=== PATIENT | female | born 1945 | race Hispanic/Latino ===

== ENCOUNTER 2017-09-02 14:33 | Inpatient (IN) | payer MEDICARE ==
[~2017-09-02] VITALS: Ht 154.9 cm; Wt 70.4 kg
[~2017-09-02 14:33] MED LIST: ARICEPT5 MG PO; FUROSEMIDE40 MG PO; GLIMEPIRIDE PO; GLIMEPIRIDE4 MG PO; LANTUS100 UNITS/ SQ; LEVAQUIN500 MG PO; LISINOPRIL PO; LOSARTAN PO; LOSARTAN POTASS50 MG PO; MACROBID 100 M100 MG PO; METFORMIN HCL500 MG PO; METFORMIN PO; METOCLOPRAMIDE10 MG PO; NEXIUM40 MG PO; SIMVASTATIN40 MG PO; SPIRONOLACTONE25 MG PO; VITAMIN D PO
[2017-09-02] MEDS ORDERED: ASPIRIN 81 MG CHEW TAB PO ONE (15:15)
[2017-09-02 15:26] LABS: BASOPHILS # (AUTO) 0.1 (0.0-0.1); BASOPHILS % 0.7 % (0.0-1.0); EOSINOPHILS # (AUTO) 0.1 (0.0-0.4); EOSINOPHILS % 0.9 % (0.0-6.0); LYMPHOCYTES # (AUTO) 1.3 (1.0-3.2); LYMPHOCYTES % 18.5 % (18.0-39.1); MEAN CORPUSCULAR HGB CONC 33.9 g/dL (31-35); MEAN CORPUSCULAR VOLUME 91.3 fL (81-99); MONOCYTES # (AUTO) 0.4 (0.2-0.8); NEUTROPHILS % 73.3 % (38.7-80.0); PLATELET COUNT 64 x10e3/uL (140-360); RED BLOOD COUNT 2.42 x10e6/uL (3.6-5.1); RED CELL DISTRIBUTION WIDTH 17.4 % (11.7-14.4)
[2017-09-02 15:27] LABS: HEMATOCRIT 22.1 % (34.2-44.1)
[2017-09-02 15:28] LABS: HEMOGLOBIN 7.5 g/dL (12.0-16.0)
[2017-09-02 15:34] LABS: INR 1.77; PROTHROMBIN TIME 21.6 seconds (11.9-14.5)
[2017-09-02 15:35] LABS: PARTIAL THROMBOPLASTIN TIME 37.5 seconds (23.8-35.5)
[2017-09-02 15:41] LABS: ALBUMIN 2.3 g/dL (3.5-5.0); ALBUMIN/GLOBULIN RATIO 0.7 (0.8-2.0); ANION GAP 14.1 mmol/L (8-16); CALCIUM 8.6 mg/dL (8.4-10.2); CREATININE, SERUM 1.02 mg/dL (0.57-1.11); POTASSIUM 4.1 mmol/L (3.5-5.1)
[2017-09-02 15:48] LABS: CREATINE KINASE MB 3.9 ng/mL (0.00-5.00)
[2017-09-02] MEDS ORDERED: PANTOPRAZOLE 40 MG 10ML VIAL IV STA (16:37)
[2017-09-02] MEDS ORDERED: PHYTONADIONE 10 MG/ML AMP SC ONE (16:45)
[2017-09-02] MEDS ORDERED: SODIUM CHLORIDE 0.9% 250ML 250 ML IV ONE (16:45)
[2017-09-02] MEDS ORDERED: OCTREOTIDE ACETATE 0.05 MG/ML AMP IV ONE ×2 (17:15→19:15)
[2017-09-02] MEDS: CEFTRIAXONE SOD 2 GM VIAL IV SCH (17:45)
[2017-09-02] MEDS: OCTREOTIDE ACETATE 500 MCG in SODIUM CHLORIDE 0.9% 250ML 250 ML IV SCH (19:00)
[2017-09-02] MEDS ORDERED: SODIUM CHLORIDE 0.9% 250ML 250 ML ONE (20:18)
[2017-09-02] MEDS: SODIUM CHLORIDE 0.9% 1000ML 1,000 ML IV SCH (22:21)
[2017-09-03 00:19] LABS: HEMATOCRIT 18.7 % (34.2-44.1); HEMOGLOBIN 6.2 g/dL (12.0-16.0)
[2017-09-03 00:23] LABS: INR 1.51
--- NOTE | 2017-09-03 00:32 | Consultation ---
DATE OF CONSULTATION: September 02, 2017 GI CONSULT NOTE REFERRING PHYSICIAN: Jam Mckinley MD REASON FOR CONSULT: Upper GI bleeding, manifesting as melena and coffee-grounds emesis times 4 to 5 days. HISTORY OF PRESENTING ILLNESS: A 72-year-old very pleasant female with a past medical history of diabetes, obesity, hyperlipidemia, NICKERSON, and liver cirrhosis. She is a patient of my associate, Dr. Natarajan. She is presenting with several bouts of passing dark stool for the last 3 to 4 days. Yesterday, she also has had several episodes of emesis which was coffee-grounds. Denies any associated abdominal pain. She has had ultrasound of the abdomen last month for a screening of HCC. This showed cirrhotic nodular liver, splenomegaly, but no liver lesion, no ascites. When she arrived in the emergency room, she was noted hemodynamically stable, not orthostatic or tachycardic. Blood work revealed hemoglobin of 7.5, baseline hemoglobin is 9.1 as checked in May 2017. BUN was noted elevated to 43, baseline was 10 in June 2017. Patient does not recall if she has ever had any upper endoscopy. Denies any abdominal pain. No prior history of any peptic ulcer disease. PAST MEDICAL HISTORY: Type 2 diabetes, obesity, hypertension, hyperlipidemia, and NICKERSON liver cirrhosis. PAST SURGICAL HISTORY: Cholecystectomy. FAMILY HISTORY: Noncontributory. SOCIAL HISTORY: No smoking, alcohol, or any illicit drug use. MEDICATIONS: Reviewed as per MAR. ALLERGIES: NKDA PHYSICAL EXAMINATION VITAL SIGNS: Temperature 97.8, pulse ranging from 89 to 93, respirations 16 to 19, blood pressure 152/68, and oxygen saturation 99% on room air. GENERAL: Obese body habitus, not in any apparent distress. HEENT: Moist mucous membrane. Anicteric sclerae. CVS: S1, S2, regular. LUNGS: Bilaterally grossly clear. ABDOMEN: Obese, nontender. No palpable mass or hernia. Positive bowel sounds. EXTREMITIES: Warm. No leg edema. LABS: Sodium 144, potassium 4.1, chloride 111, bicarbonate 23, BUN 43, creatinine 1.02, and glucose 152. Liver tests showed a total bilirubin 3.2, AST 52, ALT 24, alkaline phosphatase 127. Troponin is negative. PT 21.6, INR 1.77. Urinalysis negative with RBCs 11 to 20 per high-powered field, WBC 0 to 5. Viral hepatitis serology was noted negative in May 2017. Ultrasound of the abdomen done in July 2017 showed cirrhotic liver, no liver lesion, splenomegaly, no ascites. IMPRESSIONS 1. Hemodynamically stable upper gastrointestinal bleeding, likely from either due to oozing from portal hypertensive gastropathy, less likely variceal bleeding. 2. Possibility of peptic ulcer disease cannot be ruled out. PLAN 1. Agree to continue octreotide infusion PPI, prophylactic antibiotic. 2. Monitor stool. 3. Monitor hemoglobin, transfuse as necessary just to keep the hemoglobin above 7. 4. Upper endoscopy tomorrow. 5. Further recommendation based upon endoscopic findings. Job#: [id number] CF ASHA
[2017-09-03] MEDS ORDERED: SODIUM CHLORIDE 0.9% 250ML 250 ML ONE (02:05)
[2017-09-03] MEDS: OCTREOTIDE ACETATE 500 MCG in SODIUM CHLORIDE 0.9% 250ML 250 ML IV SCH ×2 (03:18→05:14)
[2017-09-03] MEDS: CEFTRIAXONE SOD 2 GM VIAL IV SCH ×2 (05:26→20:10)
[2017-09-03] MEDS: SODIUM CHLORIDE 0.9% 1000ML 1,000 ML IV SCH ×2 (05:30→20:46)
[2017-09-03 08:34] LABS: BASOPHILS % 0.7 % (0.0-1.0); EOSINOPHILS # (AUTO) 0.3 (0.0-0.4); EOSINOPHILS % 4.7 % (0.0-6.0); HEMATOCRIT 24.5 % (34.2-44.1); HEMOGLOBIN 8.3 g/dL (12.0-16.0); LYMPHOCYTES # (AUTO) 1.9 (1.0-3.2); LYMPHOCYTES % 31.5 % (18.0-39.1); MEAN CORPUSCULAR HEMOGLOBIN 30.5 pg (28-32); MEAN CORPUSCULAR HGB CONC 33.9 g/dL (31-35); MEAN CORPUSCULAR VOLUME 90.1 fL (81-99); MONOCYTES # (AUTO) 0.5 (0.2-0.8); NEUTROPHILS # (AUTO) 3.4 (2.1-6.9); NEUTROPHILS % 54.6 % (38.7-80.0); RED BLOOD COUNT 2.72 x10e6/uL (3.6-5.1)
[2017-09-03 08:39] LABS: PLATELET COUNT 46 x10e3/uL (140-360)
[2017-09-03 09:34] LABS: PLATELET ESTIMATE MODERATELY DECREASED; PLATELET MORPHOLOGY COMMENT FEW LARGE; POLYCHROMASIA FEW; RBC MORPHOLOGY COMMENT NORMAL
[2017-09-03] MEDS ORDERED: DEXTROSE 50% SYRINGE 50 ML IV ONE (12:56)
[2017-09-03 15:10] VITALS: BP 182/85
--- NOTE | 2017-09-03 16:08 | Consultation ---
DATE OF CONSULTATION: September 03, 2017 ATTENDING PHYSICIAN: Noel Abel MD HISTORY OF PRESENT ILLNESS: Ms. Samir Rodriguez is a complex, 72-year-old woman with diabetes and hypertension, who speaks only Serbian. She presented to the emergency room with a complaint of multiple black stools. HISTORY OF PRESENT ILLNESS: Apparently Dr. Natarajan has previously done banding of esophageal varices, but the patient cannot provide details about this. PAST MEDICAL HISTORY: From the computer suggests longstanding type-2 diabetes, hypertension, hyperlipidemia, nonalcoholic hepatitis and cirrhosis. She has had previous cholecystectomy. HOME MEDICATIONS: Include: 1. Aricept 5 mg daily. 2. Nexium 40 mg daily. 3. Furosemide 40 mg 1/2 tablet daily. 4. Glimepiride 4 mg daily. 5. Insulin. 6. Losartan 50 mg daily. 7. Metformin 500 mg b.i.d. 8. Spironolactone 25 mg daily. PERSONAL AND SOCIAL HISTORY: She lives with family. Does not drink alcohol or smoke. REVIEW OF SYSTEMS: Cardiac: She does not know anything about any cardiac murmur and denies any history of chest pain or other cardiac problem. PHYSICAL EXAMINATION GENERAL: Exam at this time shows a pleasant woman who is alert and responsive, conversing in Serbian only. Denies any discomfort. Reports she has been having multiple stools at home. VITALS: Blood pressure 150/70. HEENT: Unremarkable. NECK: No jugular venous distention. No bruits. THORAX: Heart sounds S1 and S2 are equal. There is a 3/6 systolic murmur. No diastolic murmur. LUNGS: Relatively clear. ABDOMEN: Protuberant. Normal bowel sounds. Nontender. EXTREMITIES: No cyanosis, clubbing or edema. PERTINENT LABORATORY STUDIES: Hemoglobin of 7.5 on presentation, hematocrit 22.1, platelets 64,000. Chemistries show a BUN of 43, creatinine 1.0, glucose 152. CPK 205, CK-MB 3.9, troponin I 0.288. Her presenting coags show prothrombin time 21.6 seconds and INR 1.77. ASSESSMENT 1. Anemia of blood loss. 2. History of esophageal banding. 3. Cirrhosis. 4. Diabetes. 5. History of hypertension. 6. Systolic murmur, not previously characterized. PLAN: Will recheck H and H and transfuse as necessary. Will ask for GI consultation to follow up on recent esophageal banding. She has been started on octreotide. Recommend echo to assess loud systolic murmur. Job#: [id number] EV
[2017-09-03 18:13] LABS: HEMATOCRIT 23.7 % (34.2-44.1)
[2017-09-03 18:22] LABS: HEMOGLOBIN 7.8 g/dL (12.0-16.0)
[2017-09-03] MEDS: PANTOPRAZOLE SOD 40 MG TABEC PO SCH (18:30)
[2017-09-03] MEDS ORDERED: WATER STERILE 10 ML VIAL INJ PRN (18:30)
[2017-09-03] MEDS ORDERED: DEXTROSE 50% SYRINGE 50 ML IV PRN (18:30)
[2017-09-03] MEDS: LABETALOL HCL 100 MG TAB PO SCH (18:30)
[2017-09-03] MEDS: LOSARTAN POTASSIUM 25 MG TAB PO SCH (18:37)
[2017-09-03] MEDS ORDERED: LIDOCAINE HCL 2% LOCAL INJ 5 ML SDV VIAL INJ ONE (18:53)
[2017-09-03] MEDS ORDERED: PROPOFOL IV EMULSION 10 MG/ML 20 ML VIAL ONE (18:53)
[2017-09-03] MEDS ORDERED: MIDAZOLAM HCL 2 MG/2 ML VIAL ONE (19:18)
[2017-09-03 19:22] VITALS: BP 182/85
[2017-09-03 20:00] VITALS: BP 185/82
[2017-09-03 20:00] LABS: CHOL/HDL RATIO 3.3 (3.0-3.6)
[2017-09-03] MEDS: INSULIN REGULAR, HUMAN 100 UNIT/1 ML 3ML VIAL SQ SCH (21:30)
[2017-09-03 21:36] VITALS: BP 185/82
[2017-09-03] MEDS: LABETALOL HCL IV 5 MG/ML 20ML MDV IV PRN (22:56)
[2017-09-04] VITALS (7 sets, daily range): BP systolic 121–159; BP diastolic 55–78
[2017-09-04] MEDS: SODIUM CHLORIDE 0.9% 1000ML 1,000 ML IV SCH ×2 (00:50→08:25)
[2017-09-04 02:57] LABS: HEMOGLOBIN 7.4 g/dL (12.0-16.0)
[2017-09-04] MEDS ORDERED: FAMOTIDINE20 MG PO (04:17)
[2017-09-04] MEDS ORDERED: GENERLAC10 GM/15 M (04:18)
[2017-09-04] MEDS ORDERED: CLOTRIMAZOLE-BE15 GM TOP (04:19)
[2017-09-04 06:05] LABS: HEMOGLOBIN 7.4 g/dL (12.0-16.0)
[2017-09-04] MEDS: INSULIN REGULAR, HUMAN 100 UNIT/1 ML 3ML VIAL SQ SCH ×4 (07:30→21:00)
[2017-09-04] MEDS: PANTOPRAZOLE SOD 40 MG TABEC PO SCH ×2 (08:07→17:28)
[2017-09-04] MEDS: CEFTRIAXONE SOD 2 GM VIAL IV SCH ×2 (08:07→20:00)
[2017-09-04] MEDS: LABETALOL HCL 100 MG TAB PO SCH ×2 (08:25→21:00)
[2017-09-04] MEDS: LOSARTAN POTASSIUM 25 MG TAB PO SCH (08:25)
[2017-09-04] MEDS ORDERED: SODIUM CHLORIDE 0.9% 250ML 250 ML IV ONE (12:00)
[2017-09-04] MEDS ORDERED: FUROSEMIDE INJ 10 MG/ML 2 ML VIAL IV PRN (12:00)
[2017-09-04] MEDS ORDERED: DEXTROSE 50% SYRINGE 50 ML IV PRN (12:30)
[2017-09-04] MEDS: ALPRAZOLAM 0.25 MG TAB PO SCH ×2 (12:34→21:00)
--- NOTE | 2017-09-04 12:43 | History and Physical ---
PRIMARY CARE PHYSICIAN: Dr. Epps. CHIEF COMPLAINT: Vomiting blood. HISTORY OF PRESENT ILLNESS: This is a 72-year-old woman with history of cirrhosis and variceal bleed in 2005, now vomiting blood , which was 2 days ago. She also had a bowel movement last night which was black. She was came to the hospital here and underwent endoscopy which showed variceal bleeding, which was banded and also an ulcer. The patient was admitted for further evaluation and management. Currently, she is somewhat anxious. PAST MEDICAL HISTORY: Variceal bleed, status post banding in (DOCTOR SAYS, PLEASE DISCARD THIS DICTATION). Job#: [id number] SHAILESH
[2017-09-04 13:09] LABS: HEMATOCRIT 24.7 % (34.2-44.1)
--- NOTE | 2017-09-04 19:13 | Progress Note ---
DATE: September 04, 2017 at 11 a.m. SUBJECTIVE: Overnight the patient underwent endoscopy with esophageal varices banding. The patient is somewhat anxious. REVIEW OF SYSTEMS: Denies any dizziness, chest pain. OBJECTIVE VITAL SIGNS: Reviewed. GENERAL APPEARANCE: A tired-appearing woman resting in the bed. HEENT: Anicteric. CARDIOVASCULAR: Normal S1 and S2. LUNGS: Moderate breath sounds, ABDOMEN: Soft and nontender. Nondistended. EXTREMITIES: There is no edema or calf tenderness. NEUROLOGIC: Alert and oriented x3. Moving all extremities. SKIN: Dry. PSYCHIATRIC: Flat affect. LABS: Reviewed. MEDICATIONS: Reviewed. ASSESSMENT AND PLAN: This is a 72-year-old woman. 1. Esophageal variceal bleed and status post banding. 2. Severe normocytic anemia. 3. Thrombocytopenia. 4. Acute kidney injury. 5. Cirrhosis. 6. Anxiety disorder. 7. Overweight state. BMI 29.3 with hemoglobin A1c of 5.1 and LDL of 79. 8. Portal hypertension. Splenomegaly. No focal hepatic mass. PLAN: 1. She is status post blood transfusion of 2 units of packed red blood cells and 1 fresh frozen plasma. 2. Will continue to follow blood counts. 3. Will continue losartan and labetalol. 4. Will use SCDs for DVT prophylaxis. 5. Continue oral Protonix b.i.d. 6. Treat anxiety with Xanax. 7. Will need a blood transfusion this morning. Hemoglobin is 7.4 and has been falling. 8. Monitor closely in the IMCU. Job#: [id number]
--- NOTE | 2017-09-04 19:53 | Consultation ---
DATE OF CONSULTATION: September 04, 2017 REQUESTING PHYSICIAN: Dr. Anibal Adair. CHIEF COMPLAINT: Vomiting blood. HISTORY OF PRESENT ILLNESS: This is a 72-year-old woman with a history of cirrhosis, variceal bleed in 2005, now vomiting blood on which prompted visit to the hospital. The patient also admits to black stool. The patient underwent endoscopy that showed varices. She had banding performed and also showed an ulcer. Currently, she is comfortable, but somewhat anxious. She denies any chest pain. PAST MEDICAL HISTORY: Diabetes mellitus, hypertension, cirrhosis, variceal bleed in 2005, status post banding. PAST SURGICAL HISTORY: , cholecystectomy. ALLERGIES: PER ELECTRONIC MEDICAL RECORDS. FAMILY HISTORY/SOCIAL HISTORY: The patient is . She has 7 children. No alcohol, illicits or cigarettes. MEDICATIONS: Per electronic medical records. REVIEW OF SYSTEMS: Denies any dizziness or chest pain. PHYSICAL EXAMINATION VITAL SIGNS: Reviewed. GENERAL APPEARANCE: A tired-appearing woman resting in the bed. HEENT: Anicteric. CARDIOVASCULAR: Normal S1 and S2. LUNGS: Moderate breath sounds, ABDOMEN: Soft and nontender. Nondistended. EXTREMITIES: There is no edema. SKIN: Dry. PSYCHIATRIC: Normal affect. LABS: Reviewed. MEDICATIONS: Reviewed. ASSESSMENT AND PLAN: This is a 72-year-old woman. 1. Severe normocytic anemia/variceal bleed, status post banding. 2. Peptic ulcer. 3. Thrombocytopenia. 4. Acute kidney injury. 5. Cirrhosis. 6. Hypertension. 7. Anxiety disorder. 8. Diabetes mellitus type 2. Hemoglobin A1c 5.1. LDL 79 and triglyceride 65. PLAN: 1. She is status post blood transfusion. 2. Status post banding. 3. Follow up blood count. May need blood transfusion. They want the hemoglobin with goal of 9 versus 7. 4. Continue antibiotics prophylactically. 5. Continue IV fluids, monitor. 6. Use SCDs for DVT prophylaxis. 7. Alprazolam for anxiety 0.25 q.8 h. 1. Use SCDs for DVT prophylaxis. 2. Alprazolam for anxiety 0.25 q.8 h. Job#: [id number]
[2017-09-04 20:12] LABS: HEMATOCRIT 22.6 % (34.2-44.1); HEMOGLOBIN 7.6 g/dL (12.0-16.0)
[2017-09-05] VITALS: BP 116/53
[2017-09-05 04:00] VITALS: BP 111/55
[2017-09-05] MEDS: INSULIN REGULAR, HUMAN 100 UNIT/1 ML 3ML VIAL SQ SCH ×4 (07:30→21:00)
[2017-09-05] MEDS: SODIUM CHLORIDE 0.9% 1000ML 1,000 ML IV SCH ×2 (07:33→22:16)
[2017-09-05 07:45] LABS: BASOPHILS % 0.3 % (0.0-1.0); EOSINOPHILS # (AUTO) 0.1 (0.0-0.4); EOSINOPHILS % 2.4 % (0.0-6.0); LYMPHOCYTES # (AUTO) 0.9 (1.0-3.2); LYMPHOCYTES % 32.3 % (18.0-39.1); MEAN CORPUSCULAR HEMOGLOBIN 31.1 pg (28-32); MEAN CORPUSCULAR HGB CONC 33.7 g/dL (31-35); MEAN CORPUSCULAR VOLUME 92.2 fL (81-99); MONOCYTES # (AUTO) 0.3 (0.2-0.8); MONOCYTES % 11.3 % (4.4-11.3); NEUTROPHILS # (AUTO) 1.6 (2.1-6.9); NEUTROPHILS % 53.4 % (38.7-80.0); RED BLOOD COUNT 2.19 x10e6/uL (3.6-5.1); RED CELL DISTRIBUTION WIDTH 16.9 % (11.7-14.4)
[2017-09-05 08:00] VITALS: BP 135/56
[2017-09-05 08:11] LABS: HEMATOCRIT 20.2 % (34.2-44.1); HEMOGLOBIN 6.8 g/dL (12.0-16.0); PLATELET COUNT 32 x10e3/uL (140-360)
[2017-09-05 08:24] LABS: ALBUMIN 1.9 g/dL (3.5-5.0); ALBUMIN/GLOBULIN RATIO 0.7 (0.8-2.0); ANION GAP 10.4 mmol/L (8-16); CREATININE, SERUM 1.08 mg/dL (0.57-1.11); POTASSIUM 3.4 mmol/L (3.5-5.1)
[2017-09-05 08:28] LABS: CALCIUM 6.9 mg/dL (8.4-10.2)
[2017-09-05] MEDS: PANTOPRAZOLE SOD 40 MG TABEC PO SCH ×2 (09:36→17:03)
[2017-09-05] MEDS: LOSARTAN POTASSIUM 25 MG TAB PO SCH (09:36)
[2017-09-05] MEDS: LABETALOL HCL 100 MG TAB PO SCH ×2 (09:37→21:00)
[2017-09-05] MEDS: CEFTRIAXONE SOD 2 GM VIAL IV SCH ×2 (09:37→20:00)
[2017-09-05] MEDS: ALPRAZOLAM 0.25 MG TAB PO SCH ×3 (09:37→21:00)
[2017-09-05] MEDS ORDERED: CALCIUM CHLORIDE IV ONE (10:00)
[2017-09-05] MEDS ORDERED: SODIUM CHLORIDE 0.9% IV ONE (10:00)
[2017-09-05] MEDS ORDERED: SODIUM CHLORIDE 0.9% 250ML 250 ML ONE (10:15)
[2017-09-05 12:00] VITALS: BP 141/62
[2017-09-05 16:00] VITALS: BP 152/73
[2017-09-05 17:55] LABS: HEMATOCRIT 26.4 % (34.2-44.1)
[2017-09-05] MEDS: LABETALOL HCL IV 5 MG/ML 20ML MDV IV PRN (18:19)
[2017-09-05 20:00] VITALS: BP 158/74
[2017-09-06] VITALS (9 sets, daily range): BP systolic 133–188; BP diastolic 64–79
[2017-09-06] MEDS: LABETALOL HCL IV 5 MG/ML 20ML MDV IV PRN (03:51)
--- NOTE | 2017-09-06 04:25 | Progress Note ---
DATE: September 05, 2017 TIME: 11:10 a.m. Overnight, blood counts requiring blood transfusion. REVIEW OF SYSTEMS: Negative. OBJECTIVE VITAL SIGNS: Reviewed. GENERAL APPEARANCE: A tired-appearing woman resting in the bed. HEENT: Anicteric. CARDIOVASCULAR: Normal S1, S2. LUNGS: Moderate breath sounds, ABDOMEN: Soft, nondistended, tenderness in the epigastrium. EXTREMITIES: no edema. SKIN: Dry. PSYCHIATRIC: Flat affect. NEUROLOGIC: Alert and appropriate. Moving all extremities. LABS: Reviewed. MEDICATIONS: Reviewed. ASSESSMENT AND PLAN: A 72-year-old woman. 1. Severe normocytic anemia/variceal bleed, status post banding. 2. Peptic ulcer. 3. Thrombocytopenia. 4. Acute kidney injury. 5. Cirrhosis. 6. Hypertension/anxiety disorder. 7. Diabetes mellitus, type 2. Hemoglobin A1c 5.1, LDL 79, triglycerides 65. 8. Hypertension/splenomegaly. PLAN 1. Blood transfusion today. Follow up counts after. 2. Continue antibiotics prophylactically. 3. Alprazolam for anxiety. 4. Hemoglobin 6.8. Blood transfusion as noted above. 5. Prophylaxis. Use SCD. Job#: [id number] CQ
--- NOTE | 2017-09-06 04:27 | Progress Note ---
DATE: NO DICTATION, LENGTH 0:11 Job#: [id number] CF
[2017-09-06] MEDS: SODIUM CHLORIDE 0.9% 1000ML 1,000 ML IV SCH ×2 (07:05→18:51)
[2017-09-06 07:10] LABS: HEMATOCRIT 25.9 % (34.2-44.1); HEMOGLOBIN 8.9 g/dL (12.0-16.0)
[2017-09-06] MEDS: INSULIN REGULAR, HUMAN 100 UNIT/1 ML 3ML VIAL SQ SCH ×4 (07:30→20:33)
[2017-09-06 09:02] LABS: ANION GAP 10.1 mmol/L (8-16); CALCIUM 7.3 mg/dL (8.4-10.2); CREATININE, SERUM 0.97 mg/dL (0.57-1.11); POTASSIUM 3.1 mmol/L (3.5-5.1)
[2017-09-06] MEDS: PANTOPRAZOLE SOD 40 MG TABEC PO SCH ×2 (09:09→17:23)
[2017-09-06] MEDS: LOSARTAN POTASSIUM 25 MG TAB PO SCH (09:09)
[2017-09-06] MEDS: ALPRAZOLAM 0.25 MG TAB PO SCH ×3 (09:09→20:34)
[2017-09-06] MEDS: LABETALOL HCL 100 MG TAB PO SCH ×2 (09:09→20:34)
[2017-09-06] MEDS: CEFTRIAXONE SOD 2 GM VIAL IV SCH ×2 (09:09→20:33)
--- NOTE | 2017-09-06 13:00 | Progress Note ---
DATE: September 06, 2017 TIME: 8:20 a.m. OVERNIGHT: No events. REVIEW OF SYSTEMS: Denies any chest pain. No shortness of breath. OBJECTIVE VITAL SIGNS: Reviewed. GENERAL APPEARANCE: A tired-appearing woman resting in the bed. HEENT: Anicteric. CARDIOVASCULAR: Normal S1 and S2. LUNGS: Moderate breath sounds. ABDOMEN: Soft and nontender. EXTREMITIES: No edema. SKIN: Dry. PSYCHIATRIC: Flat affect. NEUROLOGIC: Alert and appropriate. LABS: Reviewed. MEDICATIONS: Reviewed. ASSESSMENT AND PLAN: A 72-year-old woman: 1. Severe normocytic anemia/variceal bleed, status post banding. 2. Peptic ulcer. 3. Thrombocytopenia. 4. Acute kidney injury. 5. Cirrhosis. 6. Hypertension. 7. Anxiety disorder. 8. Diabetes mellitus, type 2. Hemoglobin A1c 5.1, LDL 79, and triglycerides 65. 9. Splenomegaly. PLAN 1. Status post further blood transfusion. Hemoglobin today is 8.9, last night it was 9.0. We will continue to follow today, and if remains stable, we will transition home tomorrow. 2. Hypokalemia, we will recheck the potassium now. 3. Hypocalcemia, we will recheck the calcium now. 4. Discharge planning. 5. Control blood pressure and medication, titrate beta rose. Job#: [id number] [facility]
[2017-09-06 17:18] LABS: HEMATOCRIT 27.6 % (34.2-44.1); HEMOGLOBIN 9.5 g/dL (12.0-16.0)
[2017-09-07] VITALS: BP 121/71
[2017-09-07 01:25] VITALS: BP 121/71
[2017-09-07 04:49] VITALS: BP 150/77
[2017-09-07 06:19] LABS: HEMOGLOBIN 9.3 g/dL (12.0-16.0)
[2017-09-07] MEDS ORDERED: ALPRAZOLAM0.25 MG PO (06:25)
[2017-09-07] MEDS ORDERED: PROTONIX40 MG/ML PO (06:25)
[2017-09-07] MEDS: SODIUM CHLORIDE 0.9% 1000ML 1,000 ML IV SCH (06:37)
[2017-09-07 07:22] LABS: ANION GAP 10.4 mmol/L (8-16); BLOOD UREA NITROGEN 22 mg/dL (7-26); BUN/CREATININE RATIO 26 (6-25); CALCIUM 7.3 mg/dL (8.4-10.2); CARBON DIOXIDE 20 mmol/L (22-29); CHLORIDE 111 mmol/L (98-107); CREATININE, SERUM 0.84 mg/dL (0.57-1.11); EST GLOMERULAR FILTRATION RATE > 60 ML/MIN (60-); GLUCOSE 98 mg/dL (74-118); POTASSIUM 3.4 mmol/L (3.5-5.1); SODIUM 138 mmol/L (136-145)
[2017-09-07] MEDS: INSULIN REGULAR, HUMAN 100 UNIT/1 ML 3ML VIAL SQ SCH (07:30)
--- NOTE | 2017-09-07 07:56 | Discharge Summary ---
PRINCIPAL DIAGNOSES 1. Severe normocytic anemia secondary to variceal bleeding, status post banding. 2. Peptic ulcer disease. 3. Thrombocytopenia. 4. Acute kidney injury. 5. Cirrhosis. 6. Anxiety disorder. 7. Diabetes mellitus, type 2. Glycosylated hemoglobin 5.1, low-density lipoprotein 79, triglycerides 65. 8. Splenomegaly. SECONDARY DIAGNOSIS: Cirrhosis. CHIEF COMPLAINT: Bleeding. HISTORY OF PRESENT ILLNESS: This is a 72-year-old woman with bleeding. Please refer to the H and P for further details. HOSPITAL COURSE: The patient had severe normocytic anemia secondary to variceal bleeding, status post banding. Had multiple transfusions. Finally, the hemoglobin has remained stable on PPI. The patient had peptic ulcer disease and thrombocytopenia, also has cirrhosis. The patient has diabetes mellitus, type 2. Hemoglobin A1c 5.1, LDL 79, triglycerides 65. The patient also had splenomegaly. Doing better. We will recheck the potassium level, but the hemoglobin remains stable. Currently appropriate for discharge. DISCHARGE MEDICATIONS: Per electronic medical record. FOLLOWUP 1. With primary care doctor in 1 week. 2. GI service in 1 week. FER ALLEN MD Job#: [id number]
[2017-09-07 08:00] VITALS: BP 168/75
[2017-09-07] MEDS: LOSARTAN POTASSIUM 25 MG TAB PO SCH (08:41)
[2017-09-07] MEDS: LABETALOL HCL 100 MG TAB PO SCH (08:41)
[2017-09-07] MEDS: ALPRAZOLAM 0.25 MG TAB PO SCH (08:41)
[2017-09-07] MEDS: PANTOPRAZOLE SOD 40 MG TABEC PO SCH (08:41)
[2017-09-07] MEDS: CEFTRIAXONE SOD 2 GM VIAL IV SCH (08:41)
[2017-09-07] MEDS ORDERED: MAGNESIUM SULFATE 2GM/50ML 50 ML IV ONE (09:30)
[2017-09-07] MEDS ORDERED: POTASSIUM CHLORIDE 20 MEQ TAB CR PO ONE (09:30)
[2017-09-07 11:09] VITALS: BP 125/61
[2017-09-07 11:55] VITALS: BP 155/71
== END 2017-09-07 12:51 | disposition home or self-care (01) | DRG 432 ==
LOC: ER 14:33 → ERHOLD 20:44 → UNDOADMIN 20:44 → OR 09-03 11:20 → IMCU 09-03 14:59 → OBSVTOIN 09-04 11:29 → MED/SURG2 09-04 14:16
PROVIDERS: ADMIT Internal Medicine; ATTEND Internal Medicine
PROC: 30233K1 Transfusion of Nonautologous Frozen Plasma into Peripheral Vein, Percutaneous Approach (ICD-10-PCS; 2017-09-02)
PROC: 30233N1 Transfusion of Nonautologous Red Blood Cells into Peripheral Vein, Percutaneous Approach (ICD-10-PCS; 2017-09-03)
PROC: 06L34CZ Occlusion of Esophageal Vein with Extraluminal Device, Percutaneous Endoscopic Approach (ICD-10-PCS; principal; 2017-09-03 11:30)
PROC: 0DB68ZX Excision of Stomach, Via Natural or Artificial Opening Endoscopic, Diagnostic (ICD-10-PCS; 2017-09-03 11:30)
DX: K74.60 Unspecified cirrhosis of liver (principal); K25.4 Chronic or unspecified gastric ulcer with hemorrhage; I85.11 Secondary esophageal varices with bleeding; N17.9 Acute kidney failure, unspecified; D69.6 Thrombocytopenia, unspecified; K76.6 Portal hypertension; D62 Acute posthemorrhagic anemia; K75.81 Nonalcoholic steatohepatitis (NASH); K31.89 Other diseases of stomach and duodenum; E78.5 Hyperlipidemia, unspecified; E66.3 Overweight; Z68.29 Body mass index [BMI] 29.0-29.9, adult; E11.9 Type 2 diabetes mellitus without complications; I10 Essential (primary) hypertension; F41.9 Anxiety disorder, unspecified; R16.1 Splenomegaly, not elsewhere classified; Z79.4 Long term (current) use of insulin
CPT/HCPCS: 36415; 36430; 43239; 80048; 80053; 80061; 82550; 82553; 82948; 83036; 83735; 84484; 85014; 85018; 85025; 85610; 85730; 86850; 86900; 86920; 88305; 88312; 93005; 96360; 96361; 99284; G0378; J0696; J1940; J2001; J2250; J2353; J2354; J3430; J7030; J7050; J7799; P9016; P9017

== ENCOUNTER → 2017-10-01 | Outpatient (CLI) | payer MEDICARE ==
[~2017-10-01] MED LIST changes: +ALPRAZOLAM0.25 MG PO; +CLOTRIMAZOLE-BE15 GM TOP; +DIATRIZOATE MEGL/DIATRIZOA SOD 30 ML BTL PO ONE; +FAMOTIDINE20 MG PO; +GENERLAC10 GM/15 M; +PROTONIX40 MG/ML PO
--- NOTE | 2017-10-01 12:45 | Diagnostic Imaging Report ---
PROCEDURE: CT ABDOMEN AND PELVIS WITHOUT CONTRAST TECHNIQUE: The abdomen and pelvis were scanned utilizing a multidetector helical scanner from the diaphragm to the lesser trochanter after the oral administration of Gastroview. No IV contrast was administered as per physician request. Coronal and sagittal multiplanar reformations were obtained. COMPARISON: CT chest 06/08/2017. INDICATIONS: LEFT LOWER QUADRANT ABDOMINAL PAIN FINDINGS: ABSENCE OF INTRAVENOUS CONTRAST DECREASES SENSITIVITY FOR DETECTION OF FOCAL LESIONS AND VASCULAR PATHOLOGY. LOWER THORAX: Normal. HEPATOBILIARY: No focal hepatic lesions. No biliary ductal dilatation. 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 Nodular contour. SPLEEN: No splenomegaly. PANCREAS: No focal masses or ductal dilatation. ADRENALS: No adrenal nodules. KIDNEYS/URETERS: No hydronephrosis, stones, or solid mass lesions. Simple cyst in the left kidney. PELVIC ORGANS/BLADDER: Minimal calcification is present in the uterus. Ovaries are visualized. Normal urinary bladder. PERITONEUM / RETROPERITONEUM: Minimal amount of ascites is present in the abdomen, most prominent in the right upper quadrant, bilateral paracolic gutters, and pelvis. LYMPH NODES: No lymphadenopathy. VESSELS: Numerous varices are present in the region of the esophagus, stomach, and splenic hilum. A splenorenal shunt is noted between the splenic vein and the left renal vein. Aortoiliac atherosclerotic calcifications. GI TRACT: No distention or wall thickening. Normal appendix. Moderate amount of retained feces limits intraluminal evaluation of the colon. No air-fluid levels. BONES AND SOFT TISSUES: Degenerative changes of the lumbar spine. IMPRESSION: Cirrhosis with portal hypertension and minimal ascites. Moderate left pleural effusion. Dictated by: Colten Ozuna M.D. on 10/01/2017 at 12:54 Electronically approved by: Colten Ozuna M.D. on 10/01/2017 at 12:54
== END ==
LOC: CT 09:21
PROVIDERS: ATTEND Internal Medicine Gastroenterology
DX: E10.9 Type 1 diabetes mellitus without complications (principal); R10.32 Left lower quadrant pain; K74.69 Other cirrhosis of liver; I10 Essential (primary) hypertension; E66.9 Obesity, unspecified
CPT/HCPCS: 74176

== ENCOUNTER 2017-10-19 11:42 | Emergency (ER) | payer MEDICARE ==
[~2017-10-19] VITALS: Ht 154.9 cm; Wt 70.3 kg
[~2017-10-19 11:42] MED LIST changes: -DIATRIZOATE MEGL/DIATRIZOA SOD 30 ML BTL PO ONE
--- OUTSIDE RECORDS SUMMARY | 2017-10-19 11:45 | XMS REPORT ---
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 Allergies, Adverse Reactions, Alerts This patient has no known allergies or adverse reactions. Medications This patient has no known medications. Results Test Description Test Time Test Comments Text Results Atomic Results Result Comments CT ABDOMEN/PELVIS WO [place] [address] Patient Name: HENRIETTA GALVAN MR #: [id number] : 1945 Age/Sex: 72/F Req #: [id number] Adm Physician: Ordered by: ASHLEY NORMAN MD Report #: [id number] Location: CT Room/Bed: Procedure: [id number] CT/CT ABDOMEN/PELVIS WO Exam Date: 10/01/17 Exam Time: 1120 REPORT STATUS: Signed PROCEDURE: CT ABDOMEN AND PELVIS WITHOUT CONTRAST TECHNIQUE: The abdomen and pelvis were scanned utilizing a multidetector helical scanner from the diaphragm to the lesser trochanter after the oral administration of Gastroview. No IV contrast was administered as per physician request. Coronal and sagittal multiplanar reformations were obtained. COMPARISON: CT chest 2016. INDICATIONS: LEFT LOWER QUADRANT ABDOMINAL PAIN FINDINGS: ABSENCE OF INTRAVENOUS CONTRAST DECREASES SENSITIVITY FOR DETECTION OF FOCAL LESIONS AND VASCULAR PATHOLOGY. LOWER THORAX: Normal. HEPATOBILIARY : No focal hepatic lesions. No biliary ductal dilatation. 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 Nodular contour. SPLEEN: No splenomegaly. PANCREAS: No focal masses or ductal dilatation. ADRENALS: No adrenal nodules. KIDNEYS/URETERS: No hydronephrosis, stones, or solid mass lesions. Simple cyst in the left kidney. PELVIC ORGANS/BLADDER: Minimal calcification is present in the uterus. Ovaries are visualized. Normal urinary bladder. PERITONEUM / RETROPERITONEUM: Minimal amount of ascites is present in the abdomen, most prominent in the right upper quadrant, bilateral paracolic gutters, and pelvis. LYMPH NODES: No lymphadenopathy. VESSELS: Numerous varices are present in the region of the esophagus, stomach, and splenic hilum. A splenorenal shunt is noted between the splenic vein and the left renal vein. Aortoiliac atherosclerotic calcifications. GI TRACT: No distention or wall thickening. Normal appendix. Moderate amount of retained feces limits intraluminal evaluation of the colon. No air-fluid levels. BONES AND SOFT TISSUES: Degenerative changes of the lumbar spine. IMPRESSION: Cirrhosis with portal hypertension and minimal ascites. Moderate left pleural effusion. Dictated by: Alejandro Figueroa M.D. on 10/01/2017 at 12:54 Electronically approved by: Alejandro Figueroa M.D. on 10/01/2017 at 12:54 Dictated By: ALEJANDRO FIGUEROA MD 1254 Transcribed By: [place] on 10/01/17 1254 COPY TO: ASHLEY NORMAN MD ABDOMEN COMPLETE [place] [address] Patient Name: HENRIETTA GALVAN MR #: [id number] : 1945 Age/Sex: 72/F Req #: [id number] Adm Physician: Ordered by: ASHLEY NORMAN MD Report #: [id number] Location: Room/Bed: Procedure: [id number] US/US ABDOMEN COMPLETE Exam Date: Exam Time: REPORT STATUS: Signed PROCEDURE: ABDOMINAL ULTRASOUND COMPARISON: Chest CT 06/09/2017, abdominal ultrasound 2016. INDICATIONS: DIABETES, HTN, CIRRHOSIS FINDINGS: Liver: 10.9 cm in length in the right midclavicular line. Coarse, heterogeneous hepatic parenchymal echogenicity with nodularity of the external contour. No focal mass. Main portal vein: 1.0 cm in caliber. Hepatopedal flow. Gallbladder: Removed. Common Bile Duct: 0.9 cm in caliber, unchanged. No echogenic filling defect. Right kidney: 10.6 cm in length. No solid or cystic mass, echogenic calculi, or hydronephrosis. Normal renal cortical echogenicity. Left kidney: 11.7 cm in length. No solid mass, echogenic calculi , or hydronephrosis. Normal parenchymal echogenicity. Exophytic simple cyst projecting from the lower pole measures 3.9 x 2.9 x 3.9 cm. Similar, though smaller lesion at the upper pole measures 1.5 x 1.2 x 1.6 in meters. Spleen: Enlarged, measuring 15.1 cm in length. Uniform echotexture. Pancreas: The visualized portions of the pancreas are normal. Inferior vena cava: Patent. Aorta: Non-aneurysmal. Ascites: None. CONCLUSION: Cirrhotic liver with portal hypertension evidenced by splenomegaly. No focal hepatic mass. Prominent common bile duct unchanged and likely a consequence of cholecystectomy. Simple left renal cysts. Dictated by: Brenden Esteban M.D. on 08/12/2017 at 11:30 Electronically approved by: Brenden Esteban M.D. on 08/12/2017 at 11:30 Dictated By: BRENDEN ESTEBAN MD 1130 Transcribed By: [place] on 08/12/17 1130 COPY TO: ASHLEY NORMAN MD US ABDOMEN COMPLETE [place] [address] Patient Name: HENRIETTA GALVAN MR #: [id number] : 1945 Age/Sex: 71/F Req #: [id number] [facility] Physician: DANIELLA MAURO MD Ordered by: DANIELLA MAURO MD Report #: [id number] Location: [facility] Room/Bed: [facility] Procedure: [id number] US/US ABDOMEN COMPLETE Exam Date: Exam Time: REPORT STATUS: Signed PROCEDURE: Abdominal ultrasound COMPARISON: None. INDICATION: Cirrhosis; ascites. TECHNIQUE: Sol scale color Doppler ultrasound abdomen FINDINGS: Imaged segments of the inferior vena cava and abdominal aorta are normal. The distal aorta is obscured by bowel gas. Pancreatic head and proximal body are normal. Details obscured by bowel gas. Right liver span 11 cm. Slightly increased echogenicity with a nodular liver margin. Portal vein diameter 7 mm; normal flow direction. Cholecystectomy. Common bile duct diameter 6 mm. Right kidney: 9.6 x 4.3 x 4.4 cm Left kidney: 11.8 x 5.3 x 6.3 cm. Both kidneys are normal. Spleen length: 16 cm. No ascites. CONCLUSION: 1. Small echogenic liver consistent with cirrhosis. 2. Splenomegaly consistent with portal hypertension. No ascites. Dictated by: Jason Jaffe M.D. on 06/10/2017 at 10:51 Electronically approved by: Jason Jaffe M.D. on 06/10/2017 at 10:51 Dictated By: JASON JAFFE MD 1051 Transcribed By: [place] on 06/10/17 1051 COPY TO: DANIELLA MAURO MD CT CHEST W [facility] [address] [place] [address] Patient Name: HENRIETTA GALVAN MR #: [id number] : 1945 Age/Sex: 71/F Req #: [id number] Adm Physician: DANIELLA MAURO MD Ordered by: KRISTA PATTEN MD Report #: [id number] Location: [facility] Room/Bed : [facility] Procedure: [id number] CT/CT CHEST W Exam Date : 06/08/17 Exam Time: 1200 REPORT STATUS: Signed EXAM: CT Chest WITH contrast 06/08/2017 8:31 AM INDICATION: COMPARISON: None TECHNIQUE: Chest was scanned utilizing a multidetector helical scanner from the lung apex through the level of the adrenal glands without administration of IV contrast. Coronal and sagittal reformations were obtained. Routine protocol was performed. IV CONTRAST : 100 mL of Isovue-370 COMPLICATIONS: None RADIATION DOSE: Total DLP: 470.85 mGy*cm Estimated effective dose: (DLP x 0.014 x size factor) mSv CTDIvol has been reviewed. It is below the limits set by the Radiation Protocol Committee (RPC). FINDINGS: LINES/ TUBES: None. LUNGS AND AIRWAYS: Anterior right upper lobe calcified granuloma (series 3 , image 27). There are subcentimeter right lower lobe calcified granuloma ( /). Airways are normal. PLEURA: No pneumothorax. Small bilateral pleural effusions, left greater than right. There is compressive atelectasis on the left side. HEART AND MEDIASTINUM: The thyroid gland is normal. No mediastinal, hilar or axillary lymphadenopathy. The heart is borderline in size. There is no pericardial effusion. UPPER ABDOMEN: Cirrhotic liver. Partially imaged splenomegaly and splenorenal shunts. Esophageal varices. Superior pole right renal cyst and cortical defect. 1.8 cm right hepatic lobe enhancing lesion (series 2, image 87). BONES: The visualized bony thorax is within normal limits. SOFT TISSUES: Unremarkable. IMPRESSION: 1. No evidence of pneumonia. 2. Small bilateral pleural effusions, left greater than right. Compressive atelectasis of the part of the left lower lobe. 3. Cirrhotic liver with signs of portal hypertension. 4. 1.8 cm enhancing right hepatic lobe lesion may represent hemangioma or vascular shunting. If clinically indicated, liver protocol MRI can be obtained to confirm. Signed by: Dr. Byron Tadeo MD on 06/08/2017 1:55 PM Dictated By: BYRON TADEO MD 135 Transcribed By: SIA on 06/08/17 1356 COPY TO: KRISTA PATTEN MD CHEST SINGLE (PORTABLE) [place] [address] Patient Name: HENRIETTA GALVAN MR #: [id number] : 1945 Age/Sex: 71/F Req #: [id number] Adm Physician: Ordered by: JACK PARRISH Report #: [id number] Location: ER Room/Bed: _ Procedure: [id number] DX/CHEST SINGLE (PORTABLE) Exam Date: 06/07/17 Exam Time: 1400 REPORT STATUS: Signed PROCEDURE: CHEST SINGLE (PORTABLE) COMPARISON: [facility], DX, CHEST SINGLE , 09/21/2011, 17:53. INDICATIONS: COUGH, SHORTNESS OF BREATH. FEVER FINDINGS: LUNGS: There is increased pulmonary vascularity. Left retrocardiac/lower lobe consolidation is present. PLEURA: Moderate left pleural effusion. HEART T MEDIASTINUM: The heart is enlarged. BONES T SOFT TISSUES: No acute findings. CONCLUSION: 1. Cardiomegaly with increased pulmonary vascularity. 2. Left lower lobe consolidation with a pleural effusion. Uday Srivastava D.O. Dictated by: Uday Srivastava D.O. on 06/07/2017 at 15:40 Electronically approved by: Uday Srivastava D.O. on 06/07/2017 at 15:40 Dictated By: UDAY SRIVASTAVA DO 1540 COPY TO: JACK PARRISH
[2017-10-19] MEDS ORDERED: HYDROMORPHONE 1MG/1ML INJ IV STA (12:40)
[2017-10-19] MEDS ORDERED: ONDANSETRON HCL INJ 2 MG/ML VIAL IV STA (12:40)
[2017-10-19 13:03] LABS: BASOPHILS % 0.4 % (0.0-1.0); EOSINOPHILS % 0.8 % (0.0-6.0); HEMATOCRIT 27.9 % (34.2-44.1); HEMOGLOBIN 9.6 g/dL (12.0-16.0); LYMPHOCYTES # (AUTO) 0.6 (1.0-3.2); LYMPHOCYTES % 24.9 % (18.0-39.1); MEAN CORPUSCULAR HEMOGLOBIN 31.2 pg (28-32); MEAN CORPUSCULAR HGB CONC 34.4 g/dL (31-35); MEAN CORPUSCULAR VOLUME 90.6 fL (81-99); MONOCYTES # (AUTO) 0.3 (0.2-0.8); MONOCYTES % 13.1 % (4.4-11.3); NEUTROPHILS # (AUTO) 1.4 (2.1-6.9); NEUTROPHILS % 60.4 % (38.7-80.0); PLATELET COUNT 53 x10e3/uL (140-360); RED BLOOD COUNT 3.08 x10e6/uL (3.6-5.1); RED CELL DISTRIBUTION WIDTH 17.5 % (11.7-14.4)
[2017-10-19 13:05] LABS: INR 1.8; PARTIAL THROMBOPLASTIN TIME 37.5 seconds (23.8-35.5); PROTHROMBIN TIME 19.6 seconds (11.9-14.5)
[2017-10-19 13:15] LABS: ALANINE AMINOTRANSFERASE 21 IU/L (0-55); ALBUMIN/GLOBULIN RATIO 0.6 (0.8-2.0); ALKALINE PHOSPHATASE 196 IU/L (40-150); ANION GAP 10.9 mmol/L (8-16); BLOOD UREA NITROGEN 14 mg/dL (7-26); BUN/CREATININE RATIO 20 (6-25); CALCIUM 7.3 mg/dL (8.4-10.2); CARBON DIOXIDE 20 mmol/L (22-29); CHLORIDE 111 mmol/L (98-107); CREATININE, SERUM 0.71 mg/dL (0.57-1.11); EST GLOMERULAR FILTRATION RATE > 60 ML/MIN (60-); GLUCOSE 83 mg/dL (74-118); POTASSIUM 3.9 mmol/L (3.5-5.1); SODIUM 138 mmol/L (136-145)
--- NOTE | 2017-10-19 14:19 | Diagnostic Imaging Report ---
PROCEDURE:HIP RIGHT 2-3 VW (+/- PELVIS) COMPARISON:None. INDICATIONS:FALL, RIGHT HIP PAIN FINDINGS: BONES:Generalized osteopenia, which limits evaluation of the bony structures. No acute, displaced fracture or dislocation. No lytic or blastic lesions. Mild degenerative changes in bilateral hip joints and secretory joints.. SOFT TISSUES:Negative. OTHER:Negative. CONCLUSION:Generalized osteopenia, which limits evaluation of the bony structures. No acute, displaced fracture or dislocation. Correlate clinically for need for further imaging. Rafal Low M.D. Dictated by: Rafal Low M.D. on 10/19/2017 at 14:18 Electronically approved by: Rafal Low M.D. on 10/19/2017 at 14:18
--- NOTE | 2017-10-19 14:20 | Diagnostic Imaging Report ---
PROCEDURE:FEMUR TWO VIEW MINIMUM RIGHT COMPARISON:Patients [facility], CT, CT ABDOMEN/PELVIS WO, 10/01/2017, 11:17. INDICATIONS:FALL, RIGHT HIP PAIN FINDINGS: Generalized osteopenia, which limits evaluation of bony structures. There are no acute, displaced fractures, dislocations, lytic or blastic lesions. Mild degenerative changes in the right hip and knee joints. Tiny suprapatellar effusion. CONCLUSION: Generalized osteopenic which limits evaluation of bony structures. No acute, displaced fracture or dislocation, within the limitations of the study. Rafal Low M.D. Dictated by: Rafal Low M.D. on 10/19/2017 at 14:20 Electronically approved by: Rafal Low M.D. on 10/19/2017 at 14:20
--- NOTE | 2017-10-19 18:34 | Diagnostic Imaging Report ---
MRI right hip preliminary report: Clinical history: Right hip pain, evaluate for occult hip fracture Comparison: Right femur and hip films 10/19/2017 Impression: 1. No MR evidence of occult fracture. 2. Right gluteal muscle contusion.
== END 2017-10-19 19:24 | disposition home or self-care (01) ==
LOC: ER 11:42
DX: S70.01XA Contusion of right hip, initial encounter (principal); W18.30XA Fall on same level, unspecified, initial encounter; Y93.9 Activity, unspecified; Y92.009 Unspecified place in unspecified non-institutional (private) residence as the place of occurrence of the external cause
CPT/HCPCS: 36415; 73502; 73552; 73721; 80053; 85025; 85610; 85730; 99283; J1170; J2405

== ENCOUNTER 2017-12-16 21:52 | Inpatient (IN) | payer MEDICARE ==
[~2017-12-16] VITALS: Ht 154.9 cm; Wt 77.1 kg
--- OUTSIDE RECORDS SUMMARY | 2017-12-16 22:10 | XMS REPORT | Continuity of Care Document ---
Author Author [facility] Organization [facility] Address [address] [place] [address] Phone Unavailable Care Team Providers Care Client Support Analyst Name Role Phone AVRIL WAGGONER MD PCP Insurance Providers Guarantor Dawson Henrietta Randolph Address [address] [place] [address] Email [email or web address] Payer [facility] Policy Number [id number] Subscriber's Name Henrietta Fox C Relationship 18 Self / Same As Patient Group Number [id number] Group Name RETIRED Effective Date 17 Advance Directives Directive Response Recorded Date/Time Does the patient have an advance directive? No 10/01/17 9:20am If yes, is advance directive on file with [facility]? No 09/03/17 7:26pm If not on file with [facility] will patient provide a copy? No 09/03/17 7:26pm Do you have a Directive to Physician? No 10/19/17 2:39pm Do you have a Medical Power of Interior Decorator Painting? No 10/19/17 2:39pm Do you have an out of hospital Do Not Resuscitate Order? No 10/19/17 2:39pm Do you have any special needs we should be aware of? No 10/19/17 2:39pm Do you have a support person here with you today? Yes 10/19/17 2:39pm Did patient receive Notice of Privacy Practices? Yes 10/19/17 2:39pm Did patient receive patient rights and responsibilities? Yes 10/19/17 2:40pm Problems Medical Problem Onset Date Status Cirrhosis Unknown GI bleed Unknown Pneumonia Unknown Medications Current Home Medications Medication Dose Units Route Directions Days Qty Instructions Start Date Alprazolam 0.25 Mg Tablet 0.25 Mg Oral Three Times A Day 10 Days Betamethasone/Clotrimazole (Clotrimazole-Betamethasone Crm) 15 Gm Cr 45 Gm Topically Donepezil Hcl (Aricept) 5 Mg Tablet 5 Mg Oral Bedtime 30 Tab Famotidine 20 Mg Tab 40 Mg Oral Daily 30 Tab Furosemide 40 Mg Tablet 20 Mg Oral Daily 30 Tab Glimepiride 4 Mg Tablet 4 Mg Oral Twice A Day Insulin Glargine (Lantus) 100 Units/Ml Ml 90 Units Sub-Q Daily Lactulose (Generlac) 10 Gm/15 Ml Solution Losartan Potassium 50 Mg Tablet 50 Mg Oral Daily Metformin Hcl 500 Mg Tablet 500 Mg Oral Twice A Day 60 Tab Metoclopramide Hcl 10 Mg Tablet 10 Mg Oral Daily Pantoprazole Sod (Protonix) 40 Mg/Ml Susp 40 Mg Oral Twice Daily Before Meals 30 Days 09/07/17 Simvastatin 40 Mg Tablet 40 Mg Oral Today At 9:00PM 30 Tab Spironolactone 25 Mg Tablet 50 Mg Oral Daily 60 Tab Past Home Medications Medication Directions Ordered Status Esomeprazole Magnesium (Nexium) 40 Mg Capsule.dr, 40 Mg Oral Daily Discontinued Glimepiride , Oral Twice A Day Discontinued Levofloxacin (Levaquin) 500 Mg Tablet, 500 Mg Oral Daily 06/11/17 Discontinued Lisinopril , Oral Daily Discontinued Losartan , Oral Daily Discontinued Metformin , Oral Three Times A Day Discontinued Nitrofurantoin Monohyd/M-Cryst (Macrobid 100 Mg Capsule) 100 Mg Capsule, 100 Mg Oral Twice A Day 06/11/17 Discontinued Vitamin D , Oral Wkly Discontinued Social History Social History Problem Response Recorded Date/Time Onset Date Status Hx Psychiatric Problems No 09/03/2017 7:26pm Not Applicable Not Applicable Smoking Status Start Date Stop Date Never Smoker Hospital Discharge Instructions No hospital discharge instruction information available. Plan of Care Discharge Date 10/19/17 7:24pm Disposition HOME, SELF-CARE Condition at Discharge Stable Instructions/Education Provided Contusion Forms Provided Work/School Excuse Prescriptions See Medication Section Referrals AVRIL WAGGONER MD Order Date: Call for an appointment Address: [address] [id number] Additional Instructions/Education [facility] DO[facility] Functional Status No functional status information available. Allergies, Adverse Reactions, Alerts Allergen Type Severity Reaction Status Last Updated No Known Drug Allergies Allergy Unknown Active 10/19/17 Immunizations No immunization information available. Vital Signs Acute Vital Signs Vital Response Date/Time Temperature (Fahrenheit) 97.5 degrees F (97.6 - 99.5) 09/07/2017 11:55am Pulse Pulse Rate (adult) 57 bpm (60 - 90) 09/07/2017 11:55am Respiratory Rate 18 bpm (12 - 24) 09/07/2017 11:55am Blood Pressure 155/71 mm Hg 09/07/2017 11:55am Height 5 ft 1 in 10/19/2017 11:50am Weight 155 lb 10/19/2017 11:50am Body Mass Index 29.3 kg/m^2 10/19/2017 11:50am Results Laboratory Results Test Name Result Units Flags Reference Collection Date/Time Result Date/ Time Comments Urine Color YELLOW YELLOW 06/07/2017 1:53pm 06/07/2017 2:51pm Urine Clarity SL CLOUDY CLEAR 06/07/2017 1:53pm 06/07/2017 2:51pm Urine Specific [place] 1.020 1.010-1.025 06/07/2017 1:53pm 2016 2:51pm Urine pH 6 5 - 7 06/07/2017 1:53pm 06/07/2017 2:51pm Urine Leukocyte Esterase NEGATIVE NEGATIVE 06/07/2017 1:53pm 2016 2:51pm Urine Nitrite NEGATIVE NEGATIVE 06/07/2017 1:53pm 06/07/2017 2:51pm Urine Protein TRACE H NEGATIVE 06/07/2017 1:53pm 06/07/2017 2:51pm Urine Glucose (UA) NEGATIVE NEGATIVE 06/07/2017 1:53pm 06/07/2017 2: 51pm Urine Ketones NEGATIVE NEGATIVE 06/07/2017 1:53pm 06/07/2017 2:51pm Urine Urobilinogen 0.2 mg/dL 0.2 - 1 06/07/2017 1:53pm 06/07/2017 2: 51pm Urine Bilirubin 1+ H NEGATIVE 06/07/2017 1:53pm 06/07/2017 2:51pm Urine Blood 3+ H NEGATIVE 06/07/2017 1:53pm 06/07/2017 2:51pm Urine WBC 0-5 /HPF 0-5 06/07/2017 1:53pm 06/07/2017 3:05pm Urine RBC 11-20 /HPF H 0-5 06/07/2017 1:53pm 06/07/2017 3:05pm Urine Bacteria RARE /HPF NONE 06/07/2017 1:53pm 06/07/2017 3:05pm Urine Epithelial Cells MODERATE /LPF NONE 06/07/2017 1:53pm 06/07/2017 3:05pm Influenza Virus Types A,B Antigen NEGATIVE NEGATIVE 06/07/2017 3:25pm 06/07/2017 4:01pm Lactic Acid Level 11.1 MG/DL 4.5-19.8 06/07/2017 3:25pm 06/07/2017 3: 56pm Hepatitis A IgM Antibody Negative 06/09/2017 12:50pm 06/16/2017 9: 02am Hepatitis B Surface Antigen Negative 06/09/2017 12:50pm 06/16/2017 9:02am Hepatitis B Core IgM Antibody Negative 06/09/2017 12:50pm 2016 9:02am Hepatitis C Antibody <0.1 06/09/2017 12:50pm 06/16/2017 9:02am Reference Range:0.0 - 0.9 s/co ratio Negative: < 0.8 Indeterminate: 0.8 - 0.9 Positive: > 0.9 The CDC recommends that a positive HCV antibody result be followed up with a HCV Nucleic Acid Amplification test (180684). Testing performed by: [address] [address] Dir: Lalo Teresa MD Urine Legionella Antigen Negative Negative 06/07/2017 1:53pm 2016 5:21am Presumptive negative for L. pneumophila serogroup 1 antigen in urine, suggesting no recent or current infection. Legionnaires' disease cannot be ruled out since other serogroups and species may also cause disease. Performed at: - [facility] [id number] Aircraft Cylinder Mechanic: Kwasi Jaffe MD, Phone: [phone] Platelet Estimate MODERATELY DECREASED 09/03/2017 8:08am 2017 9:34am Platelet Morphology Comment FEW LARGE 09/03/2017 8:08am 09/03/2017 9:34am Polychromasia FEW 09/03/2017 8:08am 09/03/2017 9:34am Red Cell Morphology Comment NORMAL 09/03/2017 8:08am 09/03/2017 9: 34am Bedside Glucose 187 mg/dL H 70-120 09/07/2017 11:30am 09/07/2017 12: 00pm Meter ID: [id number] Hemoglobin A1c Percent 5.1 % 4.0-7.0 09/03/2017 8:08am 09/03/2017 7: 57pm Magnesium Level 1.1 MG/DL *L 1.3-2.1 09/07/2017 5:55am 09/07/2017 7:26am Results called to ELENI MACIAS at 0725 on 09/07/17 by Dewayne Bell. RB OK. Triglycerides Level 65 MG/DL 0-149 09/03/2017 8:08am 09/03/2017 8:05pm Cholesterol Level 132 MD/DL 0-199 09/03/2017 8:08am 09/03/2017 8:05pm Less than 200 mg/dL Low Risk 201 - 239 mg/dL Borderline Risk 240 mg/dl and greater High Risk LDL Cholesterol 79 MG/DL 60-130 09/03/2017 8:08am 09/03/2017 8:05pm HDL Cholesterol 40 MG/DL 40-60 09/03/2017 8:08am 09/03/2017 8:05pm Cholesterol/HDL Ratio 3.3 3.0-3.6 09/03/2017 8:08am 09/03/2017 8: 05pm Creatine Kinase 205 IU/L H 29-168 09/02/2017 3:10pm 09/02/2017 3:42pm Creatine Kinase MB 3.90 ng/mL 0.00-5.00 09/02/2017 3:10pm 09/02/2017 3: 49pm Troponin I 0.288 ng/mL 0-0.300 09/02/2017 3:10pm 09/02/2017 3:49pm White Blood Count 2.37 x10e3/uL L 4.8-10.8 10/19/2017 12:44pm 2017 1:20pm Red Blood Count 3.08 x10e6/uL L 3.6-5.1 10/19/2017 12:44pm 10/19/2017 1: 20pm Hemoglobin 9.6 g/dL L 12.0-16.0 10/19/2017 12:44pm 10/19/2017 1:20pm Hematocrit 27.9 % L 34.2-44.1 10/19/2017 12:44pm 10/19/2017 1:20pm Mean Corpuscular Volume 90.6 fL 81-99 10/19/2017 12:44pm 10/19/2017 1: 20pm Mean Corpuscular Hemoglobin 31.2 pg 28-32 10/19/2017 12:44pm 2017 1:20pm Mean Corpuscular Hemoglobin Concent 34.4 g/dL 31-35 10/19/2017 12:44pm 10/19/2017 1:20pm Red Cell Distribution Width 17.5 % H 11.7-14.4 10/19/2017 12:44pm 2017 1:20pm Platelet Count 53 x10e3/uL L 140-360 10/19/2017 12:44pm 10/19/2017 1: 20pm Neutrophils (%) (Auto) 60.4 % 38.7-80.0 10/19/2017 12:44pm 10/19/2017 1 :20pm Lymphocytes (%) (Auto) 24.9 % 18.0-39.1 10/19/2017 12:44pm 10/19/2017 1 :20pm Monocytes (%) (Auto) 13.1 % H 4.4-11.3 10/19/2017 12:44pm 10/19/2017 1: 20pm Eosinophils (%) (Auto) 0.8 % 0.0-6.0 10/19/2017 12:44pm 10/19/2017 1: 20pm Basophils (%) (Auto) 0.4 % 0.0-1.0 10/19/2017 12:44pm 10/19/2017 1: 20pm IM GRANULOCYTES % 0.4 % 0.0-1.0 10/19/2017 12:44pm 10/19/2017 1:20pm Neutrophils # (Auto) 1.4 L 2.1-6.9 10/19/2017 12:44pm 10/19/2017 1: 20pm Lymphocytes # (Auto) 0.6 L 1.0-3.2 10/19/2017 12:44pm 10/19/2017 1: 20pm Monocytes # (Auto) 0.3 0.2-0.8 10/19/2017 12:44pm 10/19/2017 1:20pm Eosinophils # (Auto) 0.0 0.0-0.4 10/19/2017 12:44pm 10/19/2017 1: 20pm Basophils # (Auto) 0.0 0.0-0.1 10/19/2017 12:44pm 10/19/2017 1:20pm Absolute Immature Granulocyte (auto 0.01 x10e3/uL 0-0.1 10/19/2017 12: 44pm 10/19/2017 1:20pm Prothrombin Time 19.6 seconds H 11.9-14.5 10/19/2017 12:44pm 10/19/2017 1:22pm Prothromb Time International Ratio 1.80 10/19/2017 12:44pm 2017 1:22pm Oral Anticoagulant Therapy INR Values: 1. Low Intensity Therapy 1.5 - 2.0 2. Moderate Intensity Therapy 2.0 - 3.0 3. High Intensity Therapy(1) 2.5 - 3.5 4. High Intensity Therapy(2) 3.0 - 4.0 5. Panic Value INR > 5.0 Activated Partial Thromboplast Time 37.5 seconds H 23.8-35.5 10/19/2017 12:44pm 10/19/2017 1:22pm Sodium Level 138 mmol/L 136-145 10/19/2017 12:44pm 10/19/2017 1:20pm Potassium Level 3.9 mmol/L 3.5-5.1 10/19/2017 12:44pm 10/19/2017 1: 20pm Chloride Level 111 mmol/L H 98-107 10/19/2017 12:44pm 10/19/2017 1:20pm Carbon Dioxide Level 20 mmol/L L 22-29 10/19/2017 12:44pm 10/19/2017 1: 20pm Anion Gap 10.9 mmol/L 8-16 10/19/2017 12:44pm 10/19/2017 1:20pm Blood Urea Nitrogen 14 mg/dL 7-26 10/19/2017 12:44pm 10/19/2017 1:20pm Creatinine 0.71 mg/dL 0.57-1.11 10/19/2017 12:44pm 10/19/2017 1:20pm BUN/Creatinine Ratio 20 6-25 10/19/2017 12:44pm 10/19/2017 1:20pm Estimat Glomerular Filtration Rate > 60 ML/MIN 60- 10/19/2017 12:44pm 10/19/2017 1:20pm Ranges were taken from the National Kidney Disease Education Program and the National Kidney Foundation literature. Reference ranges: 60 or greater: Normal 16-59 (for 3 consecutive months): Chronic kidney disease 15 or less: Kidney failure Glucose Level 83 mg/dL 74-118 10/19/2017 12:44pm 10/19/2017 1:20pm Calcium Level 7.3 mg/dL L 8.4-10.2 10/19/2017 12:44pm 10/19/2017 1:20pm Total Bilirubin 3.1 mg/dL H 0.2-1.2 10/19/2017 12:44pm 10/19/2017 1: 20pm Aspartate Amino Transf (AST/SGOT) 61 IU/L H 5-34 10/19/2017 12:44pm 1:20pm Alanine Aminotransferase (ALT/SGPT) 21 IU/L 0-55 10/19/2017 12:44pm 1:20pm Total Protein 5.5 g/dL L 6.5-8.1 10/19/2017 12:44pm 10/19/2017 1:20pm Albumin 2.0 g/dL L 3.5-5.0 10/19/2017 12:44pm 10/19/2017 1:20pm Globulin 3.5 g/dL 2.3-3.5 10/19/2017 12:44pm 10/19/2017 1:20pm Albumin/Globulin Ratio 0.6 L 0.8-2.0 10/19/2017 12:44pm 10/19/2017 1: 20pm Alkaline Phosphatase 196 IU/L H 40-150 10/19/2017 12:44pm 10/19/2017 1: 20pm Microbiology Results Procedure Source Organism/Result Collection Date/Time Result Date/Time Result Status Urine Culture Urine,Catheterized ESCHERICHIA COLI-ESBL 06/07/2017 1:53pm 06/09/2017 3:59pm Final Blood Culture Blood NO GROWTH AFTER 5 DAYS, FINAL REPORT 06/07/2017 2:25pm 06/12/2017 2:39pm Final Procedures Procedure Status Date Provider(s) OCCLUSION ESOPHAGEAL VEIN W EXTRALUM DEV, PERC ENDO Completed 09/03/17 AMARIS SINGH MD EXCISION OF STOMACH, ENDO, DIAGN Completed 09/03/17 AMARIS SINGH MD TRANSFUSE NONAUT FROZEN PLASMA IN PERIPH VEIN, PERC Completed 09/02/17 FER ALLEN MD TRANSFUSE NONAUT RED BLOOD CELLS IN PERIPH VEIN, PERC Completed 09/03/17 FER ALLEN MD Computed tomography of chest with contrast Active 06/08/17 KRISTA PATTEN MD US abdomen complete Active 06/10/17 DANIELLA MAURO MD US abdomen complete Active 08/12/[address] of abdomen and pelvis without contrast Active 10/01/17 ASHLEY NORMAN MD MRI jnt of lwr extre w/o dye Completed 10/19/17 THOMAS FITZPATRICK MD Encounters Encounter Location Arrival/Admit Date Discharge/Depart Date Attending Provider Departed Emergency Room [facility] 10/19/17 11:42am 10/19 7:24pm THOMAS FITZPATRICK MD Registered Clinic [facility] 10/01/17 9:21am ASHLEY NORMAN MD Discharged Inpatient [facility] 09/04/17 11:29am 12:51pm FER ALLEN MD Registered Clinic [facility] 08/12/17 10:05am ASHLEY NORMAN MD Discharged Inpatient [facility] 06/07/17 5:50pm 06/11/17 2:28pm DANIELLA MAURO MD
[2017-12-16 23:35] LABS: INR 2.02; PARTIAL THROMBOPLASTIN TIME 40.6 seconds (23.8-35.5); PROTHROMBIN TIME 21.5 seconds (11.9-14.5)
[2017-12-16 23:37] LABS: BASOPHILS % 0.3 % (0.0-1.0); EOSINOPHILS % 0.5 % (0.0-6.0); HEMATOCRIT 25.9 % (34.2-44.1); HEMOGLOBIN 8.6 g/dL (12.0-16.0); LYMPHOCYTES # (AUTO) 0.5 (1.0-3.2); LYMPHOCYTES % 12.9 % (18.0-39.1); MEAN CORPUSCULAR HEMOGLOBIN 32.5 pg (28-32); MEAN CORPUSCULAR HGB CONC 33.2 g/dL (31-35); MEAN CORPUSCULAR VOLUME 97.7 fL (81-99); MONOCYTES # (AUTO) 0.2 (0.2-0.8); MONOCYTES % 6.1 % (4.4-11.3); NEUTROPHILS % 79.4 % (38.7-80.0); PLATELET COUNT 55 x10e3/uL (140-360); RED BLOOD COUNT 2.65 x10e6/uL (3.6-5.1); RED CELL DISTRIBUTION WIDTH 17.2 % (11.7-14.4)
[2017-12-16 23:38] LABS: ALBUMIN 1.7 g/dL (3.5-5.0); ALBUMIN/GLOBULIN RATIO 0.4 (0.8-2.0); ANION GAP 16.2 mmol/L (8-16); CALCIUM 7.9 mg/dL (8.4-10.2); CREATININE, SERUM 1.09 mg/dL (0.57-1.11); POTASSIUM 4.2 mmol/L (3.5-5.1)
[2017-12-16] MEDS ORDERED: DIATRIZOATE MEGL/DIATRIZOA SOD 30 ML BTL PO ONE (23:50)
[2017-12-17] VITALS (7 sets, daily range): BP systolic 115–155; BP diastolic 54–66
[2017-12-17] MEDS ORDERED: PROMETHAZINE 12.5MG/ NACL 0.9% 50 ML ONE (00:59)
[2017-12-17] MEDS ORDERED: PROMETHAZINE 12.5MG/ NACL 0.9% 12.5 MG/50 ML BAG IV ONE (01:00)
--- NOTE | 2017-12-17 01:48 | Diagnostic Imaging Report ---
EXAM: CT ABDOMEN/PELVIS WO DATE: 12/17/2017 12:00 AM INDICATION: Vomiting, left flank pain COMPARISON: --8 TECHNIQUE: The abdomen and pelvis were scanned using a multidetector helical scanner. Coronal and sagittal reformations were obtained. Routine protocol performed. IV Contrast: 0 ml Isovue 370 Oral contrast was administered. FINDINGS: Lack of IV contrast decreases sensitivity in evaluating abdominal and pelvic organs. LOWER THORAX: Small bilateral effusions with associated atelectasis. Contrast in the distal esophagus may be related to reflux or delayed transit. LIVER: Cirrhotic appearing liver. GALLBLADDER: Surgically absent SPLEEN: Borderline enlarged, 14 cm in dimension PANCREAS: Unremarkable ADRENALS: No nodules KIDNEYS: Suboptimal evaluation for lesions given noncontrast evaluation. Stable bilateral renal cystic lesions and two hyperdense lesions (HU>70). No hydronephrosis. GI TRACT: Predominantly right colonic thickening, increased from prior which can be seen with portal hypertensive colopathy. Mild gastric wall thickening is nonspecific but can be seen with gastritis or reactive related to portal hypertension. Diverticulosis. No evidence of obstruction. VESSELS: Suboptimally assessed. Scattered atherosclerotic calcifications. Varices. PERITONEUM/RETROPERITONEUM: Large volume ascites, increased from prior. LYMPH NODES: Poorly assessed REPRODUCTIVE ORGANS/BLADDER: Unremarkable SOFT TISSUES: Anasarca BONES: Scattered degenerative changes. IMPRESSION: 1. No definite acute abnormality on noncontrast evaluation. 2. Cirrhosis with portal hypertension, as above. Increased large volume ascites from prior. Signed by: Dr Silvia Mendoza MD on 12/17/2017 1:45 AM
[2017-12-17 02:09] LABS: BILIRUBIN,URINE 1+ (NEGATIVE); CLARITY,URINE SL CLOUDY (CLEAR); COLOR,URINE AMBER (YELLOW); KETONES,URINE TRACE (NEGATIVE); LEUKOCYTE ESTERASE ,URINE NEGATIVE (NEGATIVE); NITRITE,URINE NEGATIVE (NEGATIVE); PROTEIN,URINE DIPSTICK 1+ (NEGATIVE); URINE UROBILINOGEN 4 mg/dL (0.2 - 1)
[2017-12-17 02:10] LABS: AMORPHOUS SEDIMENT,URINE MODERATE (FEW); BACTERIA,URINE FEW /HPF; EPITHELIAL CELLS,URINE FEW /LPF; RBC,URINE 0-5 /HPF (0-5); WBC,URINE (MAN) 0-5 /HPF (0-5)
[2017-12-17] MEDS ORDERED: SODIUM CHLORIDE FLUSH 10 ML SYR INJ PRN (02:15)
[2017-12-17] MEDS ORDERED: DEXTROSE 50% SYRINGE 50 ML IV PRN (02:15)
[2017-12-17] MEDS ORDERED: PROMETHAZINE 12.5MG/ NACL 0.9% 12.5 MG/50 ML BAG IV PRN (02:15)
[2017-12-17] MEDS: SODIUM CHLORIDE 0.9% 1000ML 1,000 ML IV SCH ×2 (05:27→21:25)
[2017-12-17] MEDS ORDERED: LACTULOSE SYRUP 20 GM/30 ML UDC PO PRN (07:30)
[2017-12-17] MEDS: INSULIN REGULAR, HUMAN 100 UNIT/1 ML 3ML VIAL SQ SCH ×4 (07:30→20:33)
[2017-12-17] MEDS ORDERED: INSULIN DETEMIR 100 UNIT/ML PEN SQ SCH (09:00)
[2017-12-17 09:10] LABS: CHOL/HDL RATIO 4.1 (3.0-3.6)
--- NOTE | 2017-12-17 10:43 | Consultation ---
DATE OF CONSULTATION: December 17, 2017 GASTROENTEROLOGY CONSULTATION REASON FOR CONSULTATION: Cirrhosis. HISTORY OF PRESENT ILLNESS: Ms. Dawson is a 72-year-old woman presenting with abdominal pain and distention. She has a known history of cirrhosis. She reports increased abdominal girth and pain primary on the left side associated with this. Pain was not radiating and did generalize. It is not aggravated or alleviated by anything in particular. There was associated nonbloody emesis. She denies any melena. She did have small volume of red blood in her bowel movements off and on. She reports her last colonoscopy was done at [facility], but she is not sure exactly how long ago. She had an upper endoscopy in August with Dr. Smith at which time she had peptic ulcer disease, which is not a new diagnosis for her, as well as esophageal varices, which he banded prophylactically. She denies any fevers, chills or sweats. She has had some just generalized weakness. PAST MEDICAL HISTORY 1. Cirrhosis. 2. Peptic ulcer disease. 3. Diabetes. 4. Hypertension. 5. Portal hypertensive gastropathy with history of varices and ascites. SURGICAL HISTORY: , cholecystectomy and splenectomy. MEDICATIONS: Reviewed. Please see [facility] medication reconciliation form. ALLERGIES: REVIEWED. PLEASE SEE [facility] MEDICATION RECONCILIATION FORM. SOCIAL HISTORY: She denies any alcohol, tobacco or illicit substances. FAMILY HISTORY: Reviewed and noncontributory. Diabetes and hypertension. REVIEW OF SYSTEMS: A 10-system review is positive for that mentioned in HPI, otherwise, unremarkable. PHYSICAL EXAMINATION GENERAL: Pleasant, alert, oriented, and in no acute distress. HEENT: Pupils equal, round and reactive to light. NECK: Supple. LUNGS: Clear. CARDIOVASCULAR: S1 and S2. ABDOMEN: Soft. She has large volume ascites without tenderness at this time. She has normal bowel sounds. EXTREMITIES: No clubbing or cyanosis. PSYCH: Calm and cooperative. NEUROLOGIC: Alert and oriented. HEM/ONC: No significant ecchymosis or adenopathy. The electronic health record is reviewed for laboratory and radiologic studies, as well as history, and prior endoscopy reports available in our system. ASSESSMENT 1. Abdominal pain likely secondary to ascites: Will need to rule out spontaneous bacterial peritonitis. I agree with paracentesis with fluid studies. 2. Cirrhosis: Going to followup with Dr. Natarajan. Continue to avoid shellfish. 3. Hepatic encephalopathy: Appears very minimal now. Will continue on lactulose and Xifaxan. 4. Portal hypertension with history of ascites and esophageal varices: At the current time, would recommend to get started on nonselective beta rose for prophylaxis. Will start as low as 10 mg of propranolol b.i.d., and advance to heart rate target. 5. History of peptic ulcer disease: Agree with continuing the proton pump inhibitor and pantoprazole. 6. Anxiety: Defer to primary if the Xanax can be weaned or stopped given her history of encephalopathy. 7. Nausea likely secondary to intra-abdominal process has resolved. 8. Small volume rectal bleeding: Appears to be a chronic issue. Readdress as an outpatient if hemoglobin remains stable and no significant bleeding is noted here. Thank you very much for asking me to see Ms. Dawson. Any questions or concerns, please do not hesitate to contact me. Job#: [id number] SUZY
[2017-12-17 11:42] LABS: BODY FLUID COLOR YELLOW; BODY FLUID TYPE ABDOMINAL
[2017-12-17 11:43] LABS: BODY FLUID APPEARANCE SL.CLOUDY
[2017-12-17 11:44] LABS: RBC,BODY FLUID 154 cells/uL; WBC,BODY FLUID 139 cells/uL
--- NOTE | 2017-12-17 11:50 | Diagnostic Imaging Report ---
PROCEDURE:US GUIDED PARACENTESIS COMPARISON:CT abdomen and pelvis without contrast 12/17/2017. INDICATIONS:Ascites FINDINGS: After informed consent was obtained, focused abdominal ultrasound identified a safe entry route into the free ascitic fluid in the left lower quadrant of the abdomen. The overlying skin was prepped and draped in sterile fashion. Lidocaine 1% was used for local anesthesia. Under ultrasound guidance, a 5 Norwegian Yueh needle catheter was advanced into the ascitic fluid, the needle was removed and the catheter attached to vacuum bottle. 3375 cc of straw-colored fluid were aspirated. The catheter was removed and a sterile dressing was applied. There was minimal blood loss and no complications. Samples were sent to the laboratory for analysis. CONCLUSION: Uncomplicated ultrasound-guided paracentesis with removal of 3375 cc of straw-colored fluid Dictated by: Ibrahima Abdullahi M.D. on 12/17/2017 at 11:51 Electronically approved by: Ibrahima Abdullahi M.D. on 12/17/2017 at 11:51
--- NOTE | 2017-12-17 11:57 | History and Physical ---
PRIMARY CARE PHYSICIAN: Dr. Epps CHIEF COMPLAINT: Abdominal pain and pain with swallowing. HISTORY OF PRESENT ILLNESS: This is a 72-year-old woman with a history of cirrhosis, now developing abdominal pain in the left lower quadrant and painful swallowing, even with swallowing of liquids. She had a vomiting episode. These symptoms are ongoing for 1 day. She also states her abdomen has increased in size. She complains of constipation, very hard stool. No fever. No chest pain. No shortness of breath. PAST MEDICAL HISTORY 1. Variceal bleed, status post banding. 2. Diabetes mellitus, type 2. 3. Obesity. 4. Hypertension. 5. Hyperlipidemia. 6. NICKERSON liver cirrhosis. 7. Acute kidney injury. 8. Thrombocytopenia. 9. Peptic ulcer disease. 10. Severe microcytic anemia secondary to variceal bleed, status post banding. 11. Anxiety disorder. 12. Splenomegaly. 13. Dementia. PAST SURGICAL HISTORY 1. Cholecystectomy. 2. Esophageal banding. ALLERGIES: PER ELECTRONIC MEDICAL RECORD. FAMILY HISTORY: Unknown. SOCIAL HISTORY: The patient denies any alcohol, illicits or cigarettes. MEDICATIONS: Per electronic medical record. REVIEW OF SYSTEMS: Denies any dizziness or chest pain. PHYSICAL EXAMINATION VITAL SIGNS: Have been reviewed. GENERAL APPEARANCE: A tired-appearing woman resting in bed. HEENT: Atraumatic. No oropharyngeal changes. CARDIOVASCULAR: Normal S1 and S2. LUNGS: Moderate breath sounds. ABDOMEN: Large abdomen. Tender in the left lower quadrant. EXTREMITIES: Trace to 1+ leg edema bilaterally. SKIN: Dry. PSYCHIATRIC: Flat affect. LABS: Reviewed. MEDICATIONS: Reviewed. ASSESSMENT AND PLAN: A 72-year-old woman. 1. Left lower quadrant abdominal pain and significant constipation. Will give her a bowel regimen and lactulose and senna. 2. Odynophagia. GI consultation. 3. Nonalcoholic steatohepatitis liver cirrhosis. Continue medications. May benefit from Xifaxan. GI on board. 4. Acute kidney injury. Hold diuretics. Reduce fluids from 100 down to 40 and monitor. 5. Metabolic acidosis. Rehydrate and reassess. 6. Pancytopenia secondary to liver disease. Avoid anticoagulants. 7. Diabetes mellitus, type 2. Obtain hemoglobin A1c an lipid panel. We will split the insulin dose into 45 q.12 as opposed to 90 once a day. 8. Normocytic anemia, moderate. Will obtain an anemia panel. 9. Coagulopathy. INR is 2.0. Will monitor. Will correct if the patient begins to bleed. 10. Elevated bilirubin due to cirrhosis. 11. Hyperlipidemia. Continue statin. 12. Anxiety disorder. Continue alprazolam. 13. Dementia. Continue Aricept. 14. Prophylaxis: Use PPI and SCD. 15. Disposition: Start lactulose, Xifaxan, senna and GI consultation. Split insulin dose into two. Job#: [id number]
[2017-12-17] MEDS: ALPRAZOLAM 0.25 MG TAB PO SCH ×4 (12:18→20:39)
[2017-12-17] MEDS: SENNOSIDES 8.6 MG TAB PO SCH ×3 (12:18→20:39)
[2017-12-17] MEDS: METOCLOPRAMIDE HCL 10 MG TAB PO SCH (12:18)
[2017-12-17] MEDS: SPIRONOLACTONE 25 MG TAB PO SCH (12:18)
[2017-12-17] MEDS: PANTOPRAZOLE SOD 40 MG TABEC PO SCH ×2 (12:18→16:41)
[2017-12-17] MEDS: RIFAXIMIN 550 MG TABLET PO SCH ×2 (12:19→18:26)
[2017-12-17 13:56] LABS: LYMPHOCYTES,BODY FLUID 18 %; MONO/MACROPHG,BODY FLUID 14 %; OTHER CELLS,BODY FLUID 58 %
[2017-12-17 14:01] LABS: NEUTROPHILS,BODY FLUID 10 %
[2017-12-17] MEDS: PROPRANOLOL HCL 10 MG TAB PO SCH (18:23)
[2017-12-17] MEDS: DONEPEZIL HCL 5 MG TAB PO SCH ×2 (20:29→20:39)
[2017-12-17] MEDS: SIMVASTATIN 40 MG TAB PO SCH ×2 (20:29→20:39)
[2017-12-18] VITALS: BP 108/57
[2017-12-18 04:00] VITALS: BP 123/56
[2017-12-18] MEDS: SODIUM CHLORIDE 0.9% 1000ML 1,000 ML IV SCH (04:32)
[2017-12-18 07:03] LABS: EOSINOPHILS # (AUTO) 0.3 (0.0-0.4); EOSINOPHILS % 6.6 % (0.0-6.0); HEMOGLOBIN 7.3 g/dL (12.0-16.0); LYMPHOCYTES # (AUTO) 1.2 (1.0-3.2); LYMPHOCYTES % 32.5 % (18.0-39.1); MEAN CORPUSCULAR HEMOGLOBIN 32.9 pg (28-32); MEAN CORPUSCULAR HGB CONC 32.9 g/dL (31-35); MONOCYTES # (AUTO) 0.5 (0.2-0.8); MONOCYTES % 14.3 % (4.4-11.3); NEUTROPHILS # (AUTO) 1.7 (2.1-6.9); NEUTROPHILS % 46.1 % (38.7-80.0); PLATELET COUNT 52 x10e3/uL (140-360); RED BLOOD COUNT 2.22 x10e6/uL (3.6-5.1); RED CELL DISTRIBUTION WIDTH 17.3 % (11.7-14.4)
[2017-12-18 07:16] LABS: HEMATOCRIT 22.2 % (34.2-44.1)
[2017-12-18] MEDS: INSULIN REGULAR, HUMAN 100 UNIT/1 ML 3ML VIAL SQ SCH ×2 (07:30→11:30)
[2017-12-18 07:33] LABS: ALBUMIN 1.2 g/dL (3.5-5.0); ALBUMIN/GLOBULIN RATIO 0.4 (0.8-2.0); ANION GAP 9.4 mmol/L (8-16); CALCIUM 7.3 mg/dL (8.4-10.2); CREATININE, SERUM 1.54 mg/dL (0.57-1.11); POTASSIUM 4.4 mmol/L (3.5-5.1)
[2017-12-18] MEDS ORDERED: SENOKOT8.6 MG PO (07:40)
[2017-12-18] MEDS ORDERED: XIFAXAN550 MG PO (07:40)
[2017-12-18] MEDS ORDERED: LACTULOSE20 GM/30 M PO (07:40)
[2017-12-18 08:47] VITALS: BP 125/56
[2017-12-18] MEDS: PROPRANOLOL HCL 10 MG TAB PO SCH (09:00)
[2017-12-18] MEDS: SPIRONOLACTONE 25 MG TAB PO SCH (09:23)
[2017-12-18] MEDS: METOCLOPRAMIDE HCL 10 MG TAB PO SCH (09:23)
[2017-12-18] MEDS: PANTOPRAZOLE SOD 40 MG TABEC PO SCH (09:23)
[2017-12-18] MEDS: RIFAXIMIN 550 MG TABLET PO SCH (09:24)
[2017-12-18] MEDS: SENNOSIDES 8.6 MG TAB PO SCH (09:24)
[2017-12-18] MEDS: ALPRAZOLAM 0.25 MG TAB PO SCH (09:24)
[2017-12-18 09:45] LABS: HEMOGLOBIN 7.6 g/dL (12.0-16.0)
[2017-12-18 09:53] LABS: HEMATOCRIT 22.6 % (34.2-44.1)
[2017-12-18 12:46] VITALS: BP 123/57
[2017-12-18 15:00] VITALS: BP 116/56
[2017-12-18 16:00] VITALS: BP 116/56
== END 2017-12-18 15:06 | disposition home or self-care (01) | DRG 421 ==
LOC: ER 21:52 → ERHOLD 12-17 02:16 → MED/SURG 12-17 02:29
PROVIDERS: ADMIT Internal Medicine; ATTEND Internal Medicine
PROC: 0W9G3ZX Drainage of Peritoneal Cavity, Percutaneous Approach, Diagnostic (ICD-10-PCS; principal; 2017-12-17)
DX: K75.81 Nonalcoholic steatohepatitis (NASH) (principal); N17.9 Acute kidney failure, unspecified; E87.2 Acidosis; D61.818 Other pancytopenia; R13.10 Dysphagia, unspecified; R18.8 Other ascites; K72.90 Hepatic failure, unspecified without coma; K59.00 Constipation, unspecified; E11.9 Type 2 diabetes mellitus without complications; D64.9 Anemia, unspecified; E78.5 Hyperlipidemia, unspecified; I10 Essential (primary) hypertension; F41.9 Anxiety disorder, unspecified; F03.90 Unspecified dementia, unspecified severity, without behavioral disturbance, psychotic disturbance, mood disturbance, and anxiety; K27.9 Peptic ulcer, site unspecified, unspecified as acute or chronic, without hemorrhage or perforation
CPT/HCPCS: 36415; 49083; 74176; 74470; 80053; 80061; 81001; 82040; 82150; 82948; 83036; 83690; 84157; 85014; 85018; 85025; 85610; 85730; 87070; 87205; 88112; 88305; 89051; 93005; 99284; J2550; J7030

== ENCOUNTER 2018-01-09 19:40 | Inpatient (IN) | payer MEDICARE ==
[~2018-01-09] VITALS: Ht 154.9 cm; Wt 71.7 kg
[~2018-01-09 19:40] MED LIST changes: +LACTULOSE20 GM/30 M PO; +SENOKOT8.6 MG PO; +XIFAXAN550 MG PO
--- OUTSIDE RECORDS SUMMARY | 2018-01-09 19:45 | XMS REPORT | Continuity of Care Document ---
Author Author [facility] Organization [facility] Address [address] [place] [address] Phone Unavailable Care Team Providers Care Oil Well Shooter Name Role Phone AVRIL WAGGONER MD PCP Insurance Providers Guarantor Dawson RandolphHenriettaKristyn Address [address] [place] [address] Email [email or web address] Payer [facility] Policy Number [id number] Subscriber's Name Henrietta Fox C Relationship 18 Self / Same As Patient Group Number [id number] Group Name RETIRED Effective Date 17 Advance Directives Directive Response Recorded Date/Time Does the patient have an advance directive? No 12/17/17 3:30am If yes, is advance directive on file with [facility]? No 12/17/17 3:30am If not on file with [facility] will patient provide a copy? No 12/17/17 3:30am Do you have a Directive to Physician? No 12/16/17 9:52pm Do you have a Medical Power of Barrow Worker Helper? No 12/16/17 9:52pm Do you have an out of hospital Do Not Resuscitate Order? No 12/16/17 9:52pm Do you have any special needs we should be aware of? No 12/16/17 9:52pm Do you have a support person here with you today? Yes 12/16/17 9:52pm Did patient receive Notice of Privacy Practices? Yes 12/16/17 9:52pm Did patient receive patient rights and responsibilities? Yes 12/16/17 9:52pm Problems Medical Problem Onset Date Status Ascites Unknown Cirrhosis Unknown GI bleed Unknown Nausea Unknown Pneumonia Unknown Vomiting Unknown Medications Current Home Medications Medication Dose [...] Daily Lactulose (Generlac) 10 Gm/15 Ml Solution Lactulose 20 Gm/30 Ml Solution 20 Gm Oral Twice A Day as needed for Constipation 30 Days 12/18/17 Losartan Potassium 50 Mg Tablet 50 Mg Oral Daily Metformin Hcl 500 Mg Tablet 500 Mg Oral Twice A Day 60 Tab Metoclopramide Hcl 10 Mg Tablet 10 Mg Oral Daily Pantoprazole Sod (Protonix) 40 Mg/Ml Susp 40 Mg Oral Twice Daily Before Meals 30 Days 09/07/17 Rifaximin (Xifaxan) 550 Mg Tablet 550 Mg Oral Twice A Day 30 Days 12/18/17 Sennosides (Senokot) 8.6 Mg Tablet 8.6 Mg Oral Every 12 Hours 30 Days 12/18/17 Simvastatin 40 Mg Tablet 40 Mg Oral [...] Onset Date Status Hx Psychiatric Problems No 12/17/2017 3:30am Not Applicable Not Applicable Smoking Status Start Date Stop Date Former smoker Hospital Discharge Instructions No hospital discharge instruction information available. Plan of Care Discharge Date 12/18/17 3:06pm Disposition HOME, SELF-CARE Instructions/Education Provided Anemia Cirrhosis Diabetes and Diet Weakness (Generalized) Prescriptions See Medication Section Referrals pcp (Internal Medicine) Order Date: 5-7 Days Entered Date: 12/18/2017 7:41am WILDER BOGGS MD (Gastroenterology) Order Date: 5-7 Days Entered Date: 12/18/2017 7:41am Address: [address] [place] [address] Additional Instructions/Education DIABETIC DIET, CALL DR WAGGONER ON WEDNESDAY TO SET UP A FOLLOW UP APPOINTMENT, CALL YOUR SIENE MAKER ON WEDNESDAY TO SET UP A FOLLOW UP APPOINTMENT. TAKE ENSURE OR GLUCERNA THREE TIMES A DAY Functional Status Query Response Date Recorded FUNCTIONAL STATUS ` December 17, 2017 11:25am Assistive Devices Rolling Walker December 17, 2017 3:37am Ambulation Ability Moderate Assistance December 17, 2017 3:37am Toileting Ability Maximum Assistance December 18, 2017 10:09am Allergies, Adverse Reactions, Alerts Allergen Type Severity Reaction Status Last Updated No Known Drug Allergies Allergy Unknown Active 10/19/17 Immunizations No immunization information available. Vital Signs Acute Vital Signs Vital Response Date/Time Temperature (Fahrenheit) 96.0 degrees F (97.6 - 99.5) 12/18/2017 12:46pm Pulse Pulse Rate (adult) 63 bpm (60 - 90) 12/18/2017 12:46pm Respiratory Rate 16 bpm (12 - 24) 12/18/2017 12:46pm Blood Pressure 123/57 mm Hg 12/18/2017 12:46pm Height 5 ft 1 in 12/16/2017 10:10pm Weight 170 lb 12/17/2017 7:51am Body Mass Index 32.1 kg/m^2 12/18/2017 7:06am Results Laboratory Results Test Name Result Units Flags Reference Collection Date/Time Result Date/ Time Comments Influenza Virus Types A,B Antigen NEGATIVE NEGATIVE [...] with a HCV Nucleic Acid Amplification test ([id number]). Testing performed by: [address] [id number] Dir: Lalo Teresa MD Urine Legionella Antigen Negative Negative 06/07/2017 1:53pm 2016 5:21am Presumptive negative for L. pneumophila serogroup 1 antigen in urine, suggesting no recent or current infection. Legionnaires' disease cannot be ruled out since other serogroups and species may also cause disease. Performed at: [address] [id number] Hairspring I Inspector: Kwasi Jaffe MD, Phone: [phone] Platelet Estimate MODERATELY DECREASED 09/03/2017 8:08am 2017 9:34am Platelet Morphology Comment FEW LARGE 09/03/2017 8:08am 09/03/2017 9:34am Polychromasia FEW 09/03/2017 8:08am 09/03/2017 9:34am Red Cell Morphology Comment NORMAL 09/03/2017 8:08am 09/03/2017 9: 34am Magnesium Level 1.1 MG/DL *L 1.3-2.1 09/07/2017 5:55am 09/07/2017 7:26am Results called to ELENI MACIAS at 0725 on 09/07/17 by Dewayne Bell. RB OK. Creatine Kinase 205 IU/L H 29-168 09/02/2017 3:10pm 09/02/2017 3:42pm Creatine Kinase MB 3.90 ng/mL 0.00-5.00 09/02/2017 3:10pm 09/02/2017 3: 49pm Troponin I 0.288 ng/mL 0-0.300 09/02/2017 3:10pm 09/02/2017 3:49pm White Blood Count 3.78 x10e3/uL L 4.8-10.8 12/18/2017 6:42am 12/18/2017 7:16am Red Blood Count 2.22 x10e6/uL L 3.6-5.1 12/18/2017 6:42am 12/18/2017 7: 16am Hemoglobin 7.6 g/dL L 12.0-16.0 12/18/2017 8:45am 12/18/2017 9:53am Hematocrit 22.6 % *L 34.2-44.1 12/18/2017 8:45am 12/18/2017 9:53am Results called to PERNELL GARCÍA RN at 0952 on 12/18/17 by Lotus Hawley. RB OK. Mean Corpuscular Volume 100.0 fL H 81-99 12/18/2017 6:42am 12/18/2017 7: 16am Mean Corpuscular Hemoglobin 32.9 pg H 28-32 12/18/2017 6:42am 2017 7:16am Mean Corpuscular Hemoglobin Concent 32.9 g/dL 31-35 12/18/2017 6:42am 12/18/2017 7:16am Red Cell Distribution Width 17.3 % H 11.7-14.4 12/18/2017 6:42am 2017 7:16am Platelet Count 52 x10e3/uL L 140-360 12/18/2017 6:42am 12/18/2017 7: 16am Neutrophils (%) (Auto) 46.1 % 38.7-80.0 12/18/2017 6:42am 12/18/2017 7: 16am Lymphocytes (%) (Auto) 32.5 % 18.0-39.1 12/18/2017 6:42am 12/18/2017 7: 16am Monocytes (%) (Auto) 14.3 % H 4.4-11.3 12/18/2017 6:42am 12/18/2017 7: 16am Eosinophils (%) (Auto) 6.6 % H 0.0-6.0 12/18/2017 6:42am 12/18/2017 7: 16am Basophils (%) (Auto) 0.0 % 0.0-1.0 12/18/2017 6:42am 12/18/2017 7:16am IM GRANULOCYTES % 0.5 % 0.0-1.0 12/18/2017 6:4212/18/2017 7:16am Neutrophils # (Auto) 1.7 L 2.1-6.9 12/18/2017 6:42am 12/18/2017 7: 16am Lymphocytes # (Auto) 1.2 1.0-3.2 12/18/2017 6:42am 12/18/2017 7:16am Monocytes # (Auto) 0.5 0.2-0.8 12/18/2017 6:42am 12/18/2017 7:16am Eosinophils # (Auto) 0.3 0.0-0.4 12/18/2017 6:42am 12/18/2017 7:16am Basophils # (Auto) 0.0 0.0-0.1 12/18/2017 6:4212/18/2017 7:16am Absolute Immature Granulocyte (auto 0.02 x10e3/uL 0-0.1 12/18/2017 6: 42am 12/18/2017 7:16am Prothrombin Time 21.5 seconds H 11.9-14.5 12/16/2017 10:40pm 12/16/2017 11:36pm Prothromb Time International Ratio 2.02 12/16/2017 10:40pm 2017 11:36pm Oral Anticoagulant Therapy INR Values: 1. Low Intensity Therapy 1.5 - 2.0 2. Moderate Intensity Therapy 2.0 - 3.0 3. High Intensity Therapy(1) 2.5 - 3.5 4. High Intensity Therapy(2) 3.0 - 4.0 5. Panic Value INR > 5.0 Activated Partial Thromboplast Time 40.6 seconds H 23.8-35.5 12/16/2017 10:40pm 12/16/2017 11:36pm Urine Color NIALL H YELLOW 12/17/2017 1:30am 12/17/2017 2:10am Urine Clarity SL CLOUDY CLEAR 12/17/2017 1:30am 12/17/2017 2:10am Urine Specific Snow 1.030 H 1.010-1.025 12/17/2017 1:30am 2017 2:10am Urine pH 5 5 - 7 12/17/2017 1:30am 12/17/2017 2:10am Urine Leukocyte Esterase NEGATIVE NEGATIVE 12/17/2017 1:30am 2017 2:10am Urine Nitrite NEGATIVE NEGATIVE 12/17/2017 1:30am 12/17/2017 2:10am Urine Protein 1+ H NEGATIVE 12/17/2017 1:30am 12/17/2017 2:10am Urine Glucose (UA) NEGATIVE NEGATIVE 12/17/2017 1:30am 12/17/2017 2: 10am Urine Ketones TRACE H NEGATIVE 12/17/2017 1:30am 12/17/2017 2:10am Urine Urobilinogen 4 mg/dL H 0.2 - 1 12/17/2017 1:30am 12/17/2017 2: 10am Urine Bilirubin 1+ H NEGATIVE 12/17/2017 1:30am 12/17/2017 2:10am Urine Blood NEGATIVE NEGATIVE 12/17/2017 1:30am 12/17/2017 2:10am Urine WBC 0-5 /HPF 0-5 12/17/2017 1:30am 12/17/2017 2:10am Urine RBC 0-5 /HPF 0-5 12/17/2017 1:30am 12/17/2017 2:10am Urine Bacteria FEW /HPF NONE 12/17/2017 1:30am 12/17/2017 2:10am Urine Epithelial Cells FEW /LPF NONE 12/17/2017 1:30am 12/17/2017 2: 10am Urine Amorphous Sediment MODERATE H FEW 12/17/2017 1:30am 12/17/2017 2 :10am Urine Hyaline Casts 2-5 H 0-1 12/17/2017 1:30am 12/17/2017 2:10am Urine Coarse Granular Casts 1-5 H 0 12/17/2017 1:30am 12/17/2017 2: 10am Sodium Level 136 mmol/L 136-145 12/18/2017 6:42am 12/18/2017 7:40am Potassium Level 4.4 mmol/L 3.5-5.1 12/18/2017 6:42am 12/18/2017 7:40am Chloride Level 111 mmol/L H 98-107 12/18/2017 6:42am 12/18/2017 7:40am Carbon Dioxide Level 20 mmol/L L 22-12/18/2017 6:42am 12/18/2017 7: 40am Anion Gap 9.4 mmol/L 8-12/18/2017 6:42am 12/18/2017 7:40am Blood Urea Nitrogen 26 mg/dL 7-12/18/2017 6:42am 12/18/2017 7:40am Creatinine 1.54 mg/dL H 0.57-1.11 12/18/2017 6:42am 12/18/2017 7:40am BUN/Creatinine Ratio 17 6-12/18/2017 6:42am 12/18/2017 7:40am Estimat Glomerular Filtration Rate 33 ML/MIN L 6012/18/2017 6:42am 7:40am Ranges were taken from the National Kidney Disease Education Program and the National Kidney Foundation literature. Reference ranges: 60 or greater: Normal 16-59 (for 3 consecutive months): Chronic kidney disease 15 or less: Kidney failure Glucose Level 108 mg/dL 74-118 12/18/2017 6:42am 12/18/2017 7:40am Calcium Level 7.3 mg/dL L 8.4-10.2 12/18/2017 6:42am 12/18/2017 7:40am Bedside Glucose 151 mg/dL H 70-120 12/18/2017 11:03am 12/18/2017 11: 26am Meter ID: [id number] Hemoglobin A1c Percent 4.0 % 4.0-7.0 12/17/2017 8:45am 12/17/2017 9: 09am Total Bilirubin 2.2 mg/dL H 0.2-1.2 12/18/2017 6:42am 12/18/2017 7:40am Aspartate Amino Transf (AST/SGOT) 50 IU/L H 5-34 12/18/2017 6:42am 12/18 7:40am Alanine Aminotransferase (ALT/SGPT) 18 IU/L 0-55 12/18/2017 6:42am 7:40am Total Protein 4.2 g/dL L 6.5-8.1 12/18/2017 6:42am 12/18/2017 7:40am Albumin 1.2 g/dL L 3.5-5.0 12/18/2017 6:42am 12/18/2017 7:40am Globulin 3.0 g/dL 2.3-3.5 12/18/2017 6:42am 12/18/2017 7:40am Albumin/Globulin Ratio 0.4 L 0.8-2.0 12/18/2017 6:42am 12/18/2017 7: 40am Alkaline Phosphatase 145 IU/L 40-150 12/18/2017 6:42am 12/18/2017 7: 40am Triglycerides Level 62 MG/DL 0-149 12/17/2017 8:45am 12/17/2017 9:13am Cholesterol Level 107 MD/DL 0-199 12/17/2017 8:45am 12/17/2017 9:13am Less than 200 mg/dL Low Risk 201 - 239 mg/dL Borderline Risk 240 mg/dl and greater High Risk LDL Cholesterol 69 MG/DL 60-130 12/17/2017 8:45am 12/17/2017 9:13am HDL Cholesterol 26 MG/DL L 40-60 12/17/2017 8:45am 12/17/2017 9:13am Cholesterol/HDL Ratio 4.1 H 3.0-3.6 12/17/2017 8:45am 12/17/2017 9: 13am Amylase Level 50 U/L 25-125 12/16/2017 10:40pm 12/16/2017 11:39pm Lipase 23 U/L 8-78 12/16/2017 10:40pm 12/16/2017 11:39pm Body Fluid Type ABDOMINAL 12/17/2017 10:31am 12/17/2017 11:44am Body Fluid Color YELLOW 12/17/2017 10:31am 12/17/2017 11:44am Body Fluid Appearance SL.CLOUDY 12/17/2017 10:31am 12/17/2017 11: 44am Body Fluid WBC 139 cells/uL 12/17/2017 10:31am 12/17/2017 11:44am Body Fluid RBC 154 cells/uL 12/17/2017 10:31am 12/17/2017 11:44am Body Fluid Neutrophils 10 % 12/17/2017 10:31am 12/17/2017 2:01pm Slide showed a mixture of bands, rare Mesothelial cells, and few Macrophages. Slide looked at by Dr. Ferreira whom confirmed findings. 1401 on 12/17/17 by Marcie Rowell Body Fluid Lymphocytes 18 % 12/17/2017 10:31am 12/17/2017 2:01pm Body Fluid Monocytes 14 % 12/17/2017 10:31am 12/17/2017 2:01pm Body Fluid Other Cells 58 % 12/17/2017 10:31am 12/17/2017 2:01pm Body Fluid Total Cells Counted 100 12/17/2017 10:31am 12/17/2017 2: 01pm Body Fluid Total Protein 1.0 g/dL 12/17/2017 10:31am 12/17/2017 11: 47am Microbiology Results Procedure Source Organism/Result Collection Date/Time [...] w/o dye Completed 10/19/[address] of abdomen and pelvis without contrast Active 12/17/17 CALI LATIF MD US guided paracentesis Active 12/17/17 CALI LATIF MD Encounters Encounter Location Arrival/Admit Date Discharge/Depart Date Attending Provider Discharged Inpatient [facility] 12/17/17 2:16am 12/18/17 3:06pm FER ALLEN MD Departed Emergency Room [facility] 10/19/17 11:42am 10/19 7:24pm THOMAS FITZPATRICK MD Registered Clinic [facility] 10/01/17 9:21am ASHLEY NORMAN MD Discharged Inpatient [facility] 09/04/17 11:29am 12:51pm FER ALLEN MD Registered Clinic [facility] 08/12/17 10:05am ASHLEY NORMAN MD Discharged Inpatient [facility] 06/07/17 5:50pm 06/11/17 2:28pm DANIELLA MAURO MD
[2018-01-09 20:34] LABS: BASOPHILS % 0.4 % (0.0-1.0); EOSINOPHILS # (AUTO) 0.7 (0.0-0.4); EOSINOPHILS % 15.2 % (0.0-6.0); HEMOGLOBIN 7.9 g/dL (12.0-16.0); LYMPHOCYTES # (AUTO) 0.8 (1.0-3.2); LYMPHOCYTES % 17.7 % (18.0-39.1); MEAN CORPUSCULAR HGB CONC 32.9 g/dL (31-35); MEAN CORPUSCULAR VOLUME 97.2 fL (81-99); MONOCYTES # (AUTO) 0.5 (0.2-0.8); MONOCYTES % 10.5 % (4.4-11.3); NEUTROPHILS # (AUTO) 2.5 (2.1-6.9); NEUTROPHILS % 55.8 % (38.7-80.0); PLATELET COUNT 54 x10e3/uL (140-360); RED BLOOD COUNT 2.47 x10e6/uL (3.6-5.1); RED CELL DISTRIBUTION WIDTH 16.5 % (11.7-14.4)
[2018-01-09 20:42] LABS: INR 2.35; PROTHROMBIN TIME 24.2 seconds (11.9-14.5)
[2018-01-09 20:43] LABS: PARTIAL THROMBOPLASTIN TIME 47.9 seconds (23.8-35.5)
[2018-01-09 20:50] LABS: CLARITY,URINE SL CLOUDY (CLEAR); COLOR,URINE YELLOW (YELLOW); KETONES,URINE NEGATIVE (NEGATIVE); LEUKOCYTE ESTERASE ,URINE NEGATIVE (NEGATIVE); NITRITE,URINE NEGATIVE (NEGATIVE); PROTEIN,URINE DIPSTICK NEGATIVE (NEGATIVE); URINE UROBILINOGEN 0.2 mg/dL (0.2 - 1)
[2018-01-09 20:51] LABS: ALBUMIN 1.3 g/dL (3.5-5.0); ALBUMIN/GLOBULIN RATIO 0.3 (0.8-2.0); ANION GAP 10.6 mmol/L (8-16); BILIRUBIN,URINE 1+ (NEGATIVE); CALCIUM 7.4 mg/dL (8.4-10.2); CREATININE, SERUM 1.12 mg/dL (0.57-1.11); MAGNESIUM 1.2 MG/DL (1.3-2.1); POTASSIUM 3.6 mmol/L (3.5-5.1)
[2018-01-09 20:57] LABS: CREATINE KINASE MB 3.3 ng/mL (0-5.0)
[2018-01-09 21:04] LABS: BACTERIA,URINE FEW /HPF; EPITHELIAL CELLS,URINE MODERATE /LPF; RBC,URINE 0-5 /HPF (0-5)
[2018-01-09] MEDS ORDERED: FUROSEMIDE INJ 10 MG/ML 4 ML VIAL IV ONE (21:30)
[2018-01-09] MEDS ORDERED: FUROSEMIDE INJ 10 MG/ML 2 ML VIAL IV PRN (21:30)
[2018-01-09] MEDS ORDERED: SODIUM CHLORIDE 0.9% 250ML 250 ML IV ONE (21:30)
[2018-01-09] MEDS ORDERED: MAGNESIUM SULF 1GRAM/DEXTROSE 100 ML IV ONE (21:30)
--- NOTE | 2018-01-09 21:39 | Diagnostic Imaging Report ---
CHEST SINGLE (PORTABLE), 01/09/2018 7:44 PM Technique: CHEST SINGLE (PORTABLE) Comparison: 06/07/2017, CT cellophane wrapping examiner 06/08/2017 Clinical history: Abdominal distention, shortness of breath Findings: See Impression Impression: 1. Stable cardiac silhouette. Prominent superior mediastinal opacity likely correlates with tortuous vasculature when compared to CT and is accentuated by lordotic portable view. Consider follow-up upright PA and lateral when feasible. 2. Central vascular congestion. No consolidation, pleural effusion or pneumothorax. Signed by: Dr Silvia Mendzoa MD on 01/09/2018 9:35 PM
[2018-01-09] MEDS ORDERED: PANTOPRAZOLE 40 MG 10ML VIAL IV STA (21:45)
[2018-01-09] MEDS ORDERED: DEXTROSE 50% SYRINGE 50 ML IV PRN (22:00)
[2018-01-09] MEDS ORDERED: LACTULOSE SYRUP 20 GM/30 ML UDC PO PRN (22:00)
[2018-01-09] MEDS ORDERED: PHYTONADIONE 10 MG/ML AMP PO STA (23:09)
[2018-01-10] MEDS ORDERED: SODIUM CHLORIDE 0.9% 250ML 250 ML ONE ×3 (02:08→22:54)
[2018-01-10 06:45] LABS: BASOPHILS % 0.3 % (0.0-1.0); EOSINOPHILS # (AUTO) 0.6 (0.0-0.4); EOSINOPHILS % 16.1 % (0.0-6.0); LYMPHOCYTES # (AUTO) 0.7 (1.0-3.2); LYMPHOCYTES % 21.6 % (18.0-39.1); MEAN CORPUSCULAR HEMOGLOBIN 32.9 pg (28-32); MEAN CORPUSCULAR HGB CONC 34.5 g/dL (31-35); MEAN CORPUSCULAR VOLUME 95.2 fL (81-99); MONOCYTES # (AUTO) 0.4 (0.2-0.8); MONOCYTES % 12.9 % (4.4-11.3); NEUTROPHILS # (AUTO) 1.7 (2.1-6.9); NEUTROPHILS % 48.8 % (38.7-80.0); RED CELL DISTRIBUTION WIDTH 16.3 % (11.7-14.4)
[2018-01-10 06:52] LABS: HEMOGLOBIN 6.9 g/dL (12.0-16.0); PLATELET COUNT 45 x10e3/uL (140-360)
[2018-01-10 06:57] LABS: ALBUMIN 1.5 g/dL (3.5-5.0); ALBUMIN/GLOBULIN RATIO 0.4 (0.8-2.0); ANION GAP 9.5 mmol/L (8-16); CALCIUM 7.6 mg/dL (8.4-10.2); CREATININE, SERUM 1.02 mg/dL (0.57-1.11); POTASSIUM 3.5 mmol/L (3.5-5.1)
[2018-01-10 07:42] LABS: CREATINE KINASE MB 2.5 ng/mL (0-5.0)
[2018-01-10 08:01] LABS: INR 2.01; PROTHROMBIN TIME 21.4 seconds (11.9-14.5)
[2018-01-10 08:02] LABS: PARTIAL THROMBOPLASTIN TIME 43.1 seconds (23.8-35.5)
[2018-01-10] MEDS: INSULIN REGULAR, HUMAN 100 UNIT/1 ML 3ML VIAL SQ SCH ×4 (08:05→20:21)
--- NOTE | 2018-01-10 08:12 | History and Physical ---
PRIMARY CARE PHYSICIAN: Dr. Epps CHIEF COMPLAINT: Confusion and fluid overload. HISTORY OF PRESENT ILLNESS: This is a 72-year-old woman with a history of cirrhosis and anasarca, now developing confusion, anasarca. The patient was recently discharged about 3 weeks ago. She is a poor historian. PAST MEDICAL HISTORY: Diabetes mellitus, type 2, variceal bleed, status post banding, obesity, hypertension, hyperlipidemia, NICKERSON liver cirrhosis, acute kidney injury, thrombocytopenia, peptic ulcer disease, severe microcytic anemia secondary to variceal bleed, status post banding, anxiety disorder, splenomegaly, dementia, chronic kidney disease, stage 3, diabetic nephropathy. PAST SURGICAL HISTORY: Cholecystectomy. ALLERGIES: PER ELECTRONIC MEDICAL RECORD. FAMILY HISTORY/SOCIAL HISTORY: No alcohol or illicits. MEDICATIONS: Per electronic medical record. REVIEW OF SYSTEMS: Unreliable. PHYSICAL EXAMINATION VITAL SIGNS: Have been reviewed. GENERAL: A tired-appearing woman resting in bed. HEENT: Atraumatic. CARDIOVASCULAR: Normal S1 and S2. LUNGS: She has moderate breath sounds reduced at the bases. ABDOMEN: Large abdomen and nontender. EXTREMITIES: Two to 3+ leg edema. SKIN: Dry. PSYCHIATRIC: Flat affect. NEUROLOGIC: Awake but confused. Moving all extremities. LABS: Reviewed. MEDICATIONS: Reviewed. ASSESSMENT AND PLAN: A 72-year-old woman with: 1. Anasarca: Continue diuresis. Follow renal function while being diuresed. Continue Faust. 2. Hepatic encephalopathy: Increase lactulose to 30 g every 6 hours. 3. Thrombocytopenia related to cirrhosis. 4. Diabetes mellitus type 2: Hold insulin regimen at this time. Use sliding scale insulin. 5. Metabolic acidosis. 6. Dementia. 7. Chronic kidney disease, stage 3/diabetic nephropathy: Appears to be at baseline. Will monitor while she is being diuresed. 8. Coagulopathy: INR 2.35. Secondary to liver disease. Will monitor. 9. Moderate to severe anemia: Hemoglobin 10.9 and worsening to 6.9. Will need to transfuse 2 units of packed red blood cells, but will diurese while she is being transfused. 10. Prognosis is poor: Will consult Hospice for evaluation. 11. Prophylaxis: Will use sequential compression devices. 12. Disposition: Hospice evaluation. Diurese. Give 2 units of packed red blood cells. Job#: [id number] SUZY
[2018-01-10] MEDS: LACTULOSE SYRUP 20 GM/30 ML UDC PO SCH ×4 (08:52→23:34)
[2018-01-10] MEDS: PANTOPRAZOLE SOD 40 MG TABEC PO SCH ×2 (08:52→17:39)
[2018-01-10] MEDS ORDERED: FAMOTIDINE 20 MG TAB PO SCH (09:00)
[2018-01-10] MEDS ORDERED: PANTOPRAZOLE 40 MG 10ML VIAL IV SCH (09:00)
[2018-01-10] MEDS: SPIRONOLACTONE 25 MG TAB PO SCH (10:03)
[2018-01-10] MEDS: RIFAXIMIN 550 MG TABLET PO SCH ×2 (10:03→17:39)
[2018-01-10 14:35] VITALS: BP 163/81
[2018-01-10 14:52] VITALS: BP 163/81
--- NOTE | 2018-01-10 14:54 | Diagnostic Imaging Report ---
PROCEDURE:US GUIDED PARACENTESIS COMPARISON:None. INDICATIONS:ascites Laundry Sorter: Ibrahima Abdullahi M.D. Asst.: None Sedation/anesthesia: None Additional medications: Lidocaine 1% local Blood products administered: None Estimated blood loss: Minimal Implant/graft: None Specimens: 3300 cc of ascitic fluid Condition at completion procedure: Stable Disposition: Return to floor Procedure in detail: Informed consent was obtained and documented in the medical record after discussion of risks and benefits. Patient was placed in the supine position on the sonographic table. Preliminary sonographic evaluation confirmed a suitable percutaneous approach to the peritoneal cavity in the left midabdomen. The overlying skin was prepped and draped in standard sterile fashion. 1% lidocaine was infiltrated into the skin and subcutaneous tissues for local anesthesia. Then under continuous sonographic guidance, a 5 [employer] needle catheter system was advanced into the peritoneal cavity. A permanent sonographic image was stored in the medical record. The catheter was advanced off the needle and connected to vacuum bottle with subsequent evacuation 3300 cc straw-colored fluid. Final sonographic image showed near complete evacuation of ascites. The catheter was removed and a sterile dressing was applied. Patient tolerated the procedure well without immediate complication. CONCLUSION: Successful ultrasound-guided paracentesis with removal of 3300 cc straw-colored fluid. Dictated by: Ibrahima Abdullahi M.D. on 01/10/2018 at 14:56 Electronically approved by: Ibrahima Abdullahi M.D. on 01/10/2018 at 14:56
[2018-01-10 15:34] LABS: CREATINE KINASE MB 2.4 ng/mL (0-5.0)
[2018-01-10 16:07] VITALS: BP 158/78
[2018-01-10 19:30] VITALS: BP 153/72
[2018-01-10 20:00] VITALS: BP 153/72
[2018-01-10] MEDS: SIMVASTATIN 40 MG TAB PO SCH (20:20)
[2018-01-10 23:55] VITALS: BP 156/90
[2018-01-11] VITALS (7 sets, daily range): BP systolic 107–158; BP diastolic 50–67
[2018-01-11] MEDS: LACTULOSE SYRUP 20 GM/30 ML UDC PO SCH ×3 (05:36→17:58)
[2018-01-11 07:04] LABS: BASOPHILS % 0.5 % (0.0-1.0); EOSINOPHILS # (AUTO) 0.5 (0.0-0.4); EOSINOPHILS % 12.1 % (0.0-6.0); HEMATOCRIT 27.2 % (34.2-44.1); HEMOGLOBIN 9.6 g/dL (12.0-16.0); LYMPHOCYTES # (AUTO) 0.7 (1.0-3.2); LYMPHOCYTES % 17.2 % (18.0-39.1); MEAN CORPUSCULAR HEMOGLOBIN 31.6 pg (28-32); MEAN CORPUSCULAR HGB CONC 35.3 g/dL (31-35); MEAN CORPUSCULAR VOLUME 89.5 fL (81-99); MONOCYTES # (AUTO) 0.6 (0.2-0.8); MONOCYTES % 14.8 % (4.4-11.3); NEUTROPHILS # (AUTO) 2.2 (2.1-6.9); NEUTROPHILS % 54.9 % (38.7-80.0); RED BLOOD COUNT 3.04 x10e6/uL (3.6-5.1); RED CELL DISTRIBUTION WIDTH 17.5 % (11.7-14.4)
[2018-01-11 07:11] LABS: PLATELET COUNT 48 x10e3/uL (140-360)
[2018-01-11] MEDS: INSULIN REGULAR, HUMAN 100 UNIT/1 ML 3ML VIAL SQ SCH ×4 (07:30→21:00)
[2018-01-11 07:55] LABS: ANION GAP 9.7 mmol/L (8-16); CALCIUM 7.5 mg/dL (8.4-10.2); POTASSIUM 3.7 mmol/L (3.5-5.1)
[2018-01-11] MEDS: PANTOPRAZOLE SOD 40 MG TABEC PO SCH ×2 (07:56→16:30)
[2018-01-11] MEDS: SPIRONOLACTONE 25 MG TAB PO SCH (09:17)
[2018-01-11] MEDS: RIFAXIMIN 550 MG TABLET PO SCH ×2 (09:17→17:00)
[2018-01-11 12:56] LABS: BASOPHILS % 0.2 % (0.0-1.0); EOSINOPHILS # (AUTO) 0.5 (0.0-0.4); EOSINOPHILS % 12.2 % (0.0-6.0); HEMATOCRIT 29.6 % (34.2-44.1); HEMOGLOBIN 10.2 g/dL (12.0-16.0); LYMPHOCYTES # (AUTO) 0.8 (1.0-3.2); LYMPHOCYTES % 19.4 % (18.0-39.1); MEAN CORPUSCULAR HEMOGLOBIN 31.3 pg (28-32); MEAN CORPUSCULAR HGB CONC 34.5 g/dL (31-35); MEAN CORPUSCULAR VOLUME 90.8 fL (81-99); MONOCYTES # (AUTO) 0.4 (0.2-0.8); MONOCYTES % 10.4 % (4.4-11.3); NEUTROPHILS # (AUTO) 2.3 (2.1-6.9); NEUTROPHILS % 57.3 % (38.7-80.0); PLATELET COUNT 50 x10e3/uL (140-360); RED BLOOD COUNT 3.26 x10e6/uL (3.6-5.1); RED CELL DISTRIBUTION WIDTH 18.4 % (11.7-14.4)
[2018-01-11] MEDS ORDERED: ACETAMINOPHEN 325 MG TAB PO PRN (14:45)
[2018-01-11] MEDS ORDERED: MORPHINE SULFATE 2 MG/ML SYR IV PRN (16:15)
[2018-01-11] MEDS: SIMVASTATIN 40 MG TAB PO SCH (21:42)
[2018-01-12 04:00] VITALS: BP 144/64
[2018-01-12] MEDS: LACTULOSE SYRUP 20 GM/30 ML UDC PO SCH ×3 (06:43→12:00)
[2018-01-12] MEDS: INSULIN REGULAR, HUMAN 100 UNIT/1 ML 3ML VIAL SQ SCH ×3 (07:30→16:30)
[2018-01-12 08:00] VITALS: BP 109/51
[2018-01-12] MEDS: RIFAXIMIN 550 MG TABLET PO SCH ×2 (08:30→17:00)
[2018-01-12] MEDS: SPIRONOLACTONE 25 MG TAB PO SCH (08:30)
[2018-01-12] MEDS: PANTOPRAZOLE SOD 40 MG TABEC PO SCH ×2 (08:30→16:30)
[2018-01-12 12:00] VITALS: BP 128/57
[2018-01-12 16:00] VITALS: BP 104/57
== END 2018-01-12 18:40 | disposition hospice, home (50) | DRG 433 ==
LOC: ER 19:40 → ERHOLD 22:21 → MED/SURG3 01-10 12:32
PROVIDERS: ADMIT Internal Medicine; ATTEND Internal Medicine
PROC: 0W9G3ZX Drainage of Peritoneal Cavity, Percutaneous Approach, Diagnostic (ICD-10-PCS; principal; 2018-01-10)
PROC: 30233L1 Transfusion of Nonautologous Fresh Plasma into Peripheral Vein, Percutaneous Approach (ICD-10-PCS; 2018-01-10)
PROC: 30233N1 Transfusion of Nonautologous Red Blood Cells into Peripheral Vein, Percutaneous Approach (ICD-10-PCS; 2018-01-10)
CPT/HCPCS: 36415; 49083; 51700; 71045; 74470; 80048; 80053; 81001; 82140; 82550; 82553; 82948; 83735; 83880; 84484; 85025; 85610; 85730; 86850; 86900; 86920; 87086; 93005; 99285; J1940; J2270; J3430; J3475; J7050; P9016; P9017